=== PATIENT | female | born 1975 ===

== ENCOUNTER 2023-10-29 12:14 | Emergency (ER) | payer OTHER, SELFPAY ==
[2023-10-29] VITALS (9 sets, daily range): BP systolic 121–175; BP diastolic 69–103; PULSE 59–99; RESP 16–18; TEMP 36.4–37; O2SAT 96–100; BMI 33.7
--- NOTE | ~2023-10-29 | XR_ITS ---
EXAMINATION: XR CHEST CLINICAL INFORMATION: Chest pain COMPARISON: Chest radiograph from 03/19/2007 TECHNIQUE: 2 views of the chest were obtained. FINDINGS: Slight elevation right hemidiaphragm. No pneumothorax. Trachea is midline. Cardiac mediastinal silhouette is not enlarged. No large pleural effusion. Slight dextrocurvature of the thoracolumbar spine with mild multilevel degenerative changes. Soft tissues are unremarkable. XR/XR chest 2V IMPRESSION: Slight elevation right hemidiaphragm. Electronically signed by: Lizzie Steele MD 10/29/2023 01:44 PM EDT
--- NOTE | 2023-10-29 12:23 | ECG_ITS ---
Test Reason : CHEST PAIN Blood Pressure : / mmHG Vent. Rate : 077 BPM Atrial Rate : 077 BPM P-R Int : 118 ms QRS Dur : 082 ms QT Int : 440 ms P-R-T Axes : 040 008 016 degrees QTc Int : 497 ms Normal sinus rhythm Nonspecific ST and T wave abnormality Abnormal ECG When compared with ECG of 24-NOV-2011 20:04, No significant change was found Referred By: Generic ED Physician Electronically Signed By:KARLEE MAHER
--- NOTE | 2023-10-29 12:37 | ED_ITS ---
HPI - Chest Pain General Chief Complaint: Chest Pain Stated Complaint: Chest pain, headache 5 days Time Seen by Provider: 10/29/23 13:55 Source: patient Mode of arrival: ambulatory Limitations: no limitations History of Present Illness HPI narrative: This is a pleasant 48 years old the patient presented to the emergency department with a chief complaint of elevated blood pressure, she brought a blood pressure cuff yesterday and blood pressure has been elevated. She also complaining of some chest pain which is not exertional and she is complaining of palpitation and headache. She does not take any medicine she denies any major medical problem complaint: chest pain Onset (ago): day(s) (2) Prior episodes: Yes Onset: during rest Pain location: substernal Severity: mild Relieving factors: nothing Exacerbating factors: nothing Associated symptoms: nausea Risk Factors Coronary artery disease risk factors: smoking history Thoracic aortic dissection risk factors: none Related Data Previous Rx's ?Medication ?Instructions ?Recorded amlodipine 5 mg tablet (Norvasc) 5 mg PO DAILY #30 tabs 10/29/23 Allergies Allergy/AdvReac Type Severity Reaction Status Date / Time doxycycline Allergy Hallucinati Verified 10/29/23 12:42 ons Penicillins Allergy Unknown Verified 10/29/23 12:42 Review of Systems 2 Constitutional: Constitutional: Reports no additional constitutional complaints ENT: Reports system reviewed and no additional complaints, except as documented Cardiovascular: Cardiovascular: Reports chest pain [facility] Past Medical History Attestation statement: The following information was validated with the patient. [facility] Narrative: Denies any major medical Social History Social History Advance Directives: No Advance Directives Information Provided: No Physical Exam 2 Vital Signs: Vital Signs: Last Vital Signs Temp 98.6 F 10/29/23 12:38 Pulse 99 10/29/23 14:54 Resp 16 10/29/23 14:33 BP 135/80 10/29/23 15:08 Pulse Ox 98 10/29/23 14:33 O2 Del Method Room Air 10/29/23 14:33 BMI result Body Mass Index 33.7 Const: General: cooperative and well groomed Nutritional Appearance: a verage body habitus Orientation/consciousness: patient oriented x3 L imitations: no limitations HEENT: Head: Yes normal to inspection General nose exam: Normal external nose present Face and sinus: Yes normal facial exam Mouth: Normal oral and palatal mucosa present Throat: Yes posterior oropharynx normal Neck: Neck: Yes normal visual inspection Chest: Chest palpation & inspection: normal inspection of the chest Resp: Effort & Inspection: normal respiratory effort Auscultation: clear to auscultation bilaterally Cardio: Jugular venous distension: no JVD Rate: regular rate Rhythm: r egular rhythm GI: Inspection: Yes normal to inspection Palpation (GI): not firm, nontender and no guarding Skin: General skin exam: no rashes or lesions noted and elasticity normal L esions: no lesions Neuro: General: patient oriented x3 Course Course Course Narrative: This is a Rapid Medical Examination (RME) performed by Marco Simmons PA-C in triage. Full HPI, ROS, assessment and treatment plan per primary provider in the Main ED. 48 yo female with history of untreated HTN (no PCP since COVID), hx [place] palsy, hx cardiac arrhythmia 12 years ago who presents to the ER for evaluation of intermittent, sharp central and left sided chest pains that occurred all week but worsened today. Mild migraine headaches x5 days. Palpitations at night. BP at home 174/111. Plan: EKG, labs, CXR Reevaluation(s) Reevaluation #1: She is feeling better at this time blood pressure is better she was given amlodipine, symptoms are now resolved. Labs okay. I sensitive troponin negative. Think is reasonable to discharge the patient on amlodipine 5 mg daily. She does not have a PCP right now she made an appointment. Time: 15:45 Medications Administered Discontinued Medications Generic Name Dose Route Start Last Admin Trade Name Estephania PRN Reason Stop Dose Admin Amlodipine Besylate 10 mg 10/29/23 14:01 10/29/23 15:08 Amlodipine Besylate 10 Mg Tablet PO 10/29/23 14:02 10 mg ONCE ONE Administration Protocol Medical Decision Making Medical Decision Making [facility] Narrative: Patient presented with elevated blood pressure in chest pain we will check EKG troponin Differential Diagnosis Differential Diagnoses: The differential diagnosis associated with the presentation includes Hypertension/anxiety/acute coronary syndrome Admission/Observation Consideration of admission/observation: Escalation of care including admission/observation considered Lab Data 10/29/23 13:16 10/29/23 13:16 Labs: Lab Results 10/29/23 Range/Units 13:16 WBC 10.4 (4.8-10.8) X10*3/uL RBC 5.29 (4.20-5.50) X10*6/uL Hgb 15.7 (12.0-16.0) g/dl Hct 44.6 (37.0-47.0) % MCV 84.3 (80.0-98.0) fL MCH 29.7 (27.0-33.0) pg MCHC 35.2 H (31.0-35.0) g/dl RDW 13.1 (11.0-16.0) % Plt Count 247 (160-400) X10*3/uL MPV 10.5 (9.4-12.3) fL Immature Gran % (Auto) 0.3 (0.0-0.4) % Neut % (Auto) 66.8 (45-73) % Lymph % (Auto) 22.9 (20-40) % Routt % (Auto) 6.0 (2-11) % Eos % (Auto) 3.5 (0-4) % Baso % (Auto) 0.5 (0-2) % Lymph # (Auto) 2.4 (1.2-4.9) X10*3/uL Routt # (Auto) 0.6 (0.1-1.2) X10*3/uL Eos # (Auto) 0.4 (0.0-0.4) X10*3/uL Baso # (Auto) 0.1 (0.0-0.2) X10*3/uL Abs Immat Gran (auto) 0.03 (0.00-0.03) X10*3/uL Absolute Neuts (auto) 7.0 (2.0-8.3) x10*3/uL Absolute Nucleated RBC 0.000 (0.0-0.012) X10*3/uL Nucleated RBC % (auto) 0.0 (0.0-0.2) /100WBC Sodium 142 (135-145) mmol/L Potassium 4.1 (3.3-5.1) mmol/L Chloride 107 (96-108) mmol/L Carbon Dioxide 25 (22-29) mmol/L Anion Gap 14 (12-20) BUN 8 L (9-16) mg/dL Creatinine 0.83 (0.5-1.4) mg/dL Estim Creat Clear Calc 115.4 Estimated GFR > 60 Random Glucose 90 (60-115) mg/dL Calcium 9.9 (8.4-10.2) mg/dL Magnesium 2.2 (1.6-2.6) mg/dL Total Bilirubin 0.5 (0.0-1.0) mg/dL Direct Bilirubin 0.1 (0.0-0.5) mg/dL AST 25 (5-31) U/L ALT 30 (0-31) U/L Alkaline Phosphatase 78 (39-117) U/L Troponin I High Sens 13.8 (<3.5-17.0) ng/L B-Natriuretic Peptide 39 (<100) pg/mL Total Protein 8.0 (6.5-8.0) g/dL Albumin 4.4 (3.5-5.0) g/dL Independent Interpretation I performed an independent interpretation of an: EKG Interpretation: Normal sinus rhythm a rate [address]-T changes Discharge Plan Discharge Clinical Impression: Hypertension Qualifiers: Hypertension type: primary hypertension Qualified Code(s): I10 - Essential (primary) hypertension Chest pain Qualifiers: Chest pain type: unspecified Qualified Code(s): R07.9 - Chest pain, unspecified Patient Disposition: Home, Self-Care Instructions: Hypertension (ED) Prescriptions: New amlodipine [Norvasc] 5 mg tablet 5 mg PO DAILY Qty: 30 0RF Referrals: Leydi Yung MD [Primary Care Provider] - 3 days Jomar Calderon MD [Physician] - 3 days Stand Alone Forms: Work/School Release Print Language: Somali
[2023-10-29 13:21] LABS: MANUAL DIFF FLAG NO
[2023-10-29 13:22] LABS: Basophils Absolute Auto 0.1 X10*3/uL (0.0-0.2); Basophils Percent Auto 0.5 % (0-2); Eosinophils Absolute Auto 0.4 X10*3/uL (0.0-0.4); Eosinophils Percent Auto 3.5 % (0-4); Hematocrit 44.6 % (37.0-47.0); Hemoglobin 15.7 g/dl (12.0-16.0); Imm Gran Abs Auto 0.03 X10*3/uL (0.00-0.03); Imm Gran Pct Auto 0.3 % (0.0-0.4); Lymphocytes Absolute Auto 2.4 X10*3/uL (1.2-4.9); Lymphocytes Percent Auto 22.9 % (20-40); Mean Corpuscular HGB Conc 35.2 g/dl (31.0-35.0); Mean Corpuscular Hemoglobin 29.7 pg (27.0-33.0); Mean Corpuscular Volume 84.3 fL (80.0-98.0); Mean Platelet Volume 10.5 fL (9.4-12.3); Monocytes Absolute Auto 0.6 X10*3/uL (0.1-1.2); Neutrophils Percent Auto 66.8 % (45-73); Platelet Count 247 X10*3/uL (160-400); Red Blood Count 5.29 X10*6/uL (4.20-5.50); Red Cell Distribution Width 13.1 % (11.0-16.0); White Blood Count 10.4 X10*3/uL (4.8-10.8)
[2023-10-29 13:56] LABS: Alanine Aminotransferase 30 U/L (0-31); Albumin Level 4.4 g/dL (3.5-5.0); Alkaline Phosphatase 78 U/L (39-117); Anion Gap 14 (12-20); Aspartate Amino Transferase 25 U/L (5-31); Bilirubin Direct 0.1 mg/dL (0.0-0.5); Bilirubin Total 0.5 mg/dL (0.0-1.0); Blood Urea Nitrogen 8 mg/dL (9-16); Calcium 9.9 mg/dL (8.4-10.2); Carbon Dioxide 25 mmol/L (22-29); Chloride 107 mmol/L (96-108); Creatinine Clr Calc Pharmacy 115.4; Estimated Glomerular Filt Rate > 60; Glucose Random 90 mg/dL (60-115); Magnesium 2.2 mg/dL (1.6-2.6); Potassium 4.1 mmol/L (3.3-5.1); Sodium 142 mmol/L (135-145)
[2023-10-29 14:03] LABS: Troponin-I High Sensitivity 13.8 ng/L (<3.5-17.0)
[2023-10-29 14:07] LABS: B Type Natriuretic Peptide 39 pg/mL (<100)
[2023-10-29] MEDS: amLODIPine Besylate 10 MG TABLET PO (15:08)
[2023-10-29 16:05] LABS: Appearance Urine Clear; Color Urine Yellow; Glucose Urine UA Negative (Negative); Leukocyte Esterase Urine Negative (Negative); Nitrite Urine Negative (Negative); PH 5.5 (5.0-9.0); Urine Blood Negative (Negative); Urine Ketones Trace mg/dL (Negative); Urine Protein Negative (Neg-Trace)
[2023-10-29 16:15] LABS: Amphetamine Screen Urine Not Detected (Not Detect); Barbiturates, Urine Not Detected (Not Detect); Benzodiazepines Screen Urine Not Detected (Not Detect); Buprenorphine Scr Not Detected (Not Detect); Cannabinoid Screen Urine Not Detected (Not Detect); Cocaine Screen Urine Not Detected (Not Detect); Fentanyl, urine Not Detected (Not Detect); Methadone Screen, Urine Not Detected (Not Detect); Opiate Screen Urine Not Detected (Not Detect); Oxycodone Screen Urine Not Detected (Not Detect); Phencyclidine Screen Urine Not Detected (Not Detect)
== END 2023-10-29 16:08 | disposition home or self-care (01) ==
PROVIDERS: Physician Assistant; Emergency Provider Emergency Medicine; PCP Internal Medicine
DX: R07.89 Other chest pain (principal); R51.9 Headache, unspecified; R11.2 Nausea with vomiting, unspecified; I10 Essential (primary) hypertension; R00.2 Palpitations; R06.02 Shortness of breath; Z51.81 Encounter for therapeutic drug level monitoring; Z79.899 Other long term (current) drug therapy
CPT/HCPCS: 36415; 71046; 80048; 80076; 80307; 81003; 83735; 83880; 84484; 85025; 93005; 99283; 99285

== ENCOUNTER 2023-11-07 07:43 | Outpatient (AMB) | payer OTHER, SELFPAY ==
[2023-11-07 07:49] VITALS: BP 110/78; PULSE 88; O2SAT 98; BMI 33.9
--- NOTE | 2023-11-07 07:49 | A.OFFPC_ITS ---
Vital Signs 11/07/23 07:49 Height 5 ft 11 in Weight 243 lb BMI 33.9 BP 110/78 Blood Pressure Location Rt brachial Position Sitting Pulse 88 Pulse Source Pulse Oximeter Pulse Oximetry (%) 98 Oxygen Delivery Method Room Air Intake Visit Reasons: [facility] [place] elevated Intake Note: Pt is here today as a New Patient for ER f/u elevated b/p Allergies doxycycline Allergy (Verified 11/07/23 08:14) Hallucinations Penicillins Allergy (Verified 11/07/23 08:14) Unknown adhesive tape Adverse Reaction (Verified 11/07/23 08:14) rash COVID19 Adverse Reaction (Uncoded 11/07/23 08:14) Anaphylaxis Medication List - Last Reconciled 11/07/23 by Leydi Yung MD amlodipine (Norvasc) 5 mg PO DAILY Tobacco use date assessed: 11/07/23 Dental Screening Dental Screen Date: 11/07/23 Did you have a dental visit in the last 12 months?: No Did you have a dental problem in the last 6 months where you did not have access to dental care?: No Was dental information given to patient?: Patient has dentist HPI [facility] [place] elevated HPI Details 48 yo female with history of untreated H TN , reasons COVID, hx [place] palsy, hx cardiac arrhythmia 12 years ago who is here for follow-up after recent ER visit, where she went for evaluation of intermittent, sharp central and left sided chest pains that occurred all week and progressively getting worse. This was accompanied by mild headache, and occasional palpitations. Her blood pressure at home was 174/111. She was given amlodipine, resolution of symptoms. CBC electrolytes renal function and troponin all came within normal limits. Patient has been checking her blood pressure however and it has been running at home averaging the 150s over 90's Still continues to smoke cigarettes, usually smokes half a pack a day, but has now starting to cut back COUNTS INCLUDE 234 BEDS AT THE [facility] Medical History Not ready to quit smoking Rosacea PTSD (post-traumatic stress disorder) Essential hypertension Surgical History No pertinent past surgical history Family History Father Substance use disorder Mental health disorder Essential hypertension Alcoholism Prostate cancer Paternal Uncle No problems noted. Sister Mental health disorder Cardiac arrhythmia History of pulmonary embolus (PE) PTSD (post-traumatic stress disorder) OCD (obsessive compulsive disorder) Mother Cardiac arrhythmia Diabetes mellitus Congestive heart failure (CHF) Essential hypertension Social History Housing: House Patient Tobacco Use Status: Current everyday Tobacco user Tobacco use type: Cigarette e-Cigarette/Vaping Use: Never Used service: No Current occupational status: employed Cognitive needs: No Hearing needs: No Vision needs: Yes Review of Systems Const Denies body aches, Denies fatigue, Denies fever(s), Denies headache(s) and Denies weakness Eyes Denies change in vision ENT Denies dizziness, Denies headache(s) and Denies nasal congestion Card Denies chest pain, Denies lightheadedness and Denies dyspnea Resp Denies cough and Denies dyspnea GI Denies abdominal pain, Denies change in bowel habits and Denies heartburn Denies hematuria, Denies urinary frequency and Denies dysuria Musc Reports no additional complaints Neuro Denies dizziness, Denies headache(s) and Denies weakness Psych Reports no additional complaints Endo Denies fatigue, Denies polydipsia and Denies polyuria Michel/Lymph Denies easy bruising Aller/Immun Denies seasonal rhinorrhea Physical exam (Primary Care) Vital Signs: Last Vital Signs Pulse 88 11/07/23 07:49 BP 110/78 11/07/23 07:49 Pulse Ox 98 11/07/23 07:49 Oxygen Delivery Method Room Air 11/07/23 07:49 BMI result Body Mass Index 33.9 Tobacco/Smoking Status: Tobacco use Status Tobacco use date assessed 11/07/23 11/07/23 07:53 Patient Tobacco Use Status Current everyday Tobacco 11/07/23 07:53 Tobacco use type Cigarette 11/07/23 07:53 e-Cigarette/Vaping Use Never Used 11/07/23 07:53 Const General: comfortable, no acute distress and alert Orientation/consciousness: patient oriented x3 HENMT Ears: external ears normal General nose exam: Normal external nose present Mouth: Normal oral and palatal mucosa present, oropharynx normal and moist mucous membranes Eyes General: appearance normal, both eyes and all related structures Conjunctivae: conjunctivae normal Sclerae: sclerae normal Pupils: Equal, round and reactive pupils present EOM: EOMs intact bilaterally Neck Neck: Yes full ROM, Yes no lymphadenopathy and Yes supple Resp Effort & Inspection: normal respiratory effort and able to speak in complete sentences Auscultation: clear to auscultation bilaterally Cardio Rate: regular rate Rhythm: regular rhythm Heart sounds: S1 normal heart sound present and S2 normal heart sound present Bruits: no carotid bruits GI Palpation (GI): Soft to palpation, nontender and no masses Auscultation: normal bowel sounds Back/Spine/Pelvis Back: No back tenderness Neuro General: patient oriented x3, gait normal, tone normal, moves all extremities, Normal light touch and pain sensation and no focal motor deficits Cranial nerves: Yes CN's II-XII intact bilaterally and Yes Equal, round and reactive pupils present Cognition (Neuro): normal cognition Extrem General: Yes full ROM, Yes no joint enlargement, Yes no clubbing, cyanosis or edema and Yes no calf tenderness Psych Appearance: grossly normal and well kempt Mental Status: mental status grossly normal Speech and movement: Normal speech and movement present Affect: normal affect Attitude: cooperative Thought process: Normal thought process present Thought content: Normal thought content present Assessment and Plan Assessment & Plan (1) Essential hypertension: Code(s): I10 - Essential (primary) hypertension Plan: Blood pressure disease within normal limits but patient has been checking it at home and it has been averaging 150/90. Will increase amlodipine to 7.5 mg once a day, advised to go on a low-salt diet, encouraged strongly to quit smoking, patient is cutting back. Recommended to see a parts representative for guidance with regards to her diet, needs to be on a low-salt low-cholesterol diet, patient states that she will call and schedule appointment will have her check her (2) Intermittent palpitations: Code(s): R00.2 - Palpitations Plan: Already has an appointment to see Cardiology next week (3) Not ready to quit smoking: Code(s): Z72.0 - Tobacco use Plan: Patient strongly advised to stop smoking, as smoking damages blood vessels, degenerative of joints and spine, damage to lungs and heart., predisposes to developing certain cancers like lung, breast, bladder, colon. Recommended to try decreasing cigarette use by 1-2 cigarettes a day. Advised to monitor what triggers are for smoking so that this can be discussed on the next office visit. We can discuss different options to quit smoking when ready. (4) PTSD (post-traumatic stress disorder): Code(s): F43.10 - Post-traumatic stress disorder, unspecified Plan: Controls it through behavioral modifications. Currently not on any medication. Orders: Orders TSH reflex Free T4 Today I10 - Essential (primary) hypertension, R00.2 - Palpitations Lipid Panel Today I10 - Essential (primary) hypertension, R00.2 - Palpitations Vitamin D 25-OH Total Today I10 - Essential (primary) hypertension, R00.2 - Palpitations Medications: Changed From amlodipine (Norvasc) 5 mg PO DAILY 30 tabs 0RF To amlodipine (Norvasc) 7.5 mg (1.5 x 5 mg) PO DAILY 30 days 45 tabs 0RF Coding Level of Care Code New Pt Level 4 (32255) Diagnoses Essential hypertension I10 Intermittent palpitations R00.2 Not ready to quit smoking Z72.0 PTSD (post-traumatic stress disorder) F43.10
== END 2023-11-07 12:48 | disposition home or self-care (01) ==
PROVIDERS: PCP Internal Medicine; Visit Provider Internal Medicine
DX: I10 Essential (primary) hypertension (principal); R00.2 Palpitations; Z72.0 Tobacco use; F43.10 Post-traumatic stress disorder, unspecified

== ENCOUNTER → 2023-11-07 07:43 | Outpatient (BNVA) | payer OTHER, SELFPAY | PROVIDERS: PCP Internal Medicine; Visit Provider Internal Medicine | DX: I10 Essential (primary) hypertension (principal) ==

== ENCOUNTER 2023-11-07 08:58 | Outpatient (REF) | payer OTHER, SELFPAY ==
[2023-11-07 14:06] LABS: Cholesterol 172 mg/dL (<200); HDL Cholesterol 49 mg/dL (>40); LDL Cholesterol Calculated 104 mg/dL (<100); TSH reflex Free T4 1.66 uIU/mL (0.32-4.0); Triglycerides 95 mg/dL (<150); Vitamin D 25-OH Total 36.6 ng/mL (>30)
== END 2023-11-07 08:59 | disposition home or self-care (01) ==
LOC: HO.HMGCLDS 08:58
PROVIDERS: PCP Internal Medicine; Visit Provider Internal Medicine
DX: I10 Essential (primary) hypertension (principal); R00.2 Palpitations
CPT/HCPCS: 36415; 80061; 82306; 84443

== ENCOUNTER 2023-11-14 13:14 | Outpatient (AMB) | payer OTHER, SELFPAY ==
[2023-11-14 13:49] VITALS: BP 132/68; PULSE 79; BMI 33.8
--- NOTE | 2023-11-14 13:49 | MHC.OFFVIS ---
Vital Signs 11/14/23 13:49 Height 5 ft 11 in Weight 242 lb 8.136 oz BMI 33.8 BP 132/68 Blood Pressure Location Lt brachial Position Sitting Pulse 79 Pulse Source Monitor Intake Visit Reasons: s/p ED htn / meds NS Allergies bacitracin [From Triple Antibiotic] Allergy (Verified 11/14/23 14:44) Rash doxycycline Allergy (Verified 11/14/23 14:44) Hallucinations neomycin [From Triple Antibiotic] Allergy (Verified 11/14/23 14:44) Rash Penicillins Allergy (Verified 11/14/23 14:44) Unknown polymyxin B [From Triple Antibiotic] Allergy (Verified 11/14/23 14:44) Rash adhesive tape Adverse Reaction (Verified 11/14/23 14:44) rash COVID19 Adverse Reaction (Uncoded 11/14/23 14:44) Anaphylaxis Medication List - Last Reconciled 11/14/23 by Bridget Verma NP amlodipine (Norvasc) 7.5 mg (1.5 x 5 mg) PO DAILY 30 days HPI Comments Details: 48-year-old female presents today for a new patient visit. She went to the emergency department on 10/29/2023 due to having a headache for 5 days and noting her blood pressure was elevated at 179/114. She describes a squeezing chest pain and when she gets palpitations it is a flutter accompanied by a sharp pain. She has a history of PTSD, Rosacea, smoking, and hypertension. Since the emergency room visit she has cut back on smoking and caffiene. She does not drink alcohol. Her mother has heart failure, atrial fibrillation,. and hypertension. Her sister has an arrhythmias and hypertension. The last week her systolic readings have been 110-130s. [facility] Medical History Palpitations Not ready to quit smoking Rosacea PTSD (post-traumatic stress disorder) Essential hypertension Surgical History No pertinent past surgical history Family History Father Substance use disorder Mental health disorder Essential hypertension Alcoholism Prostate cancer Paternal Uncle No problems noted. Sister Mental health disorder Cardiac arrhythmia History of pulmonary embolus (PE) PTSD (post-traumatic stress disorder) OCD (obsessive compulsive disorder) Atrial fibrillation Mother Cardiac arrhythmia Diabetes mellitus Congestive heart failure (CHF) Essential hypertension Atrial fibrillation Social History Housing: House Patient Tobacco Use Status: Current everyday Tobacco user Tobacco use type: Cigarette e-Cigarette/Vaping Use: Never Used service: No Current occupational status: employed Cognitive needs: No Hearing needs: No Vision needs: Yes Review of Systems Const Denies weakness ENT Reports dizziness Card Reports chest pain, Denies chest pain with activity, Denies syncope, Denies rapid heart rate, Denies pedal edema, Denies edema, Denies leg edema, Denies lightheadedness, Reports palpitations, Denies dyspnea, Denies dyspnea on exertion and Denies orthopnea Resp Denies cough, Denies dyspnea and Denies dyspnea on exertion GI Denies hematochezia and Denies change in stool character Musc Denies abnormal gait, Denies muscle cramps, Denies muscle weakness, Denies numbness, Denies radiating pain into limb and Denies tingling Neuro Denies abnormal gait, Reports dizziness, Denies syncope, Denies numbness, Denies tingling and Denies weakness Endo Reports palpitations Physical Exam Vital Signs: Last Vital Signs Pulse 79 11/14/23 13:49 BP 132/68 11/14/23 13:49 BMI result Body Mass Index 33.8 Const General: healthy appearing and no acute distress Orientation/consciousness: patient oriented x3 HEENT Head: Yes normal to inspection Eyes General: appearance normal, both eyes and all related structures Neck Neck: Yes normal visual inspection Chest Chest palpation & inspection: normal inspection of the chest Resp Effort & Inspection: normal respiratory effort Auscultation: clear to auscultation bilaterally Cardio Jugular venous distension: no JVD Palpation: normal PMI Rate: regular rate Rhythm: regular rhythm Heart sounds: S1 normal heart sound present, S2 normal heart sound present, no click, no gallops, no murmurs and no rubs GI Inspection: Yes normal to inspection Palpation (GI): Soft to palpation Skin General skin exam: no rashes or lesions noted Neuro General: patient oriented x3 Extrem General: Yes normal to inspection Psych Appearance: grossly normal Office Procedures EKG Details: EKG today. Normal sinus rhythm. Nonspecific ST abnormality. Prolonged QT. ventricular rate 79 beats per minute. CO interval 1 38 milliseconds. QRS duration 88 milliseconds. QTC 495 milliseconds. [id number], Complete Assessment & Plan Assessment & Plan (1) Essential hypertension: Code(s): I10 - Essential (primary) hypertension Category: Medical (2) Not ready to quit smoking: Code(s): Z72.0 - Tobacco use Category: Social Hx Plan: Trying to quit. Cutting back slowly. (3) Chest pain: Code(s): R07.9 - Chest pain, unspecified Category: Medical Qualifiers: Chest pain type: unspecified Qualified Code(s): R07.9 - Chest pain, unspecified (4) Palpitations: Code(s): R00.2 - Palpitations Category: Medical (5) PTSD (post-traumatic stress disorder): Code(s): F43.10 - Post-traumatic stress disorder, unspecified Category: Medical Plan Will do holter montior to assess for arrhythmias Has family history of atrial fibrillation. Will check echocardiogram for structual changes from HTN. She reports she had high readings for quite a few years and it wasnt addressed. Will do exercise stress test to assess blood pressure with exercise and ischemic changes related to her chest pains. ED care if needed. Stress mitigation techniques reviewed. 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 Complete smoking cessation discussed. Avoid stimulants. Log blood pressures and bring to next visit. Orders: Orders ECG 3 day holter monitor 11/14/23 R00.2 - Palpitations CA stress test 11/14/23 R07.9 - Chest pain, unspecified CA echo transthoracic complete 11/14/23 I10 - Essential (primary) hypertension Coding Level of Care Code New Pt Level 4 (99167) Diagnoses Essential hypertension I10 Not ready to quit smoking Z72.0 Chest pain R07.9 Chest pain type: unspecified Palpitations R00.2 PTSD (post-traumatic stress disorder) F43.10 CPT Codes EKG - CPT: [id number], Complete ([id number])
== END 2023-11-14 15:06 | disposition home or self-care (01) ==
PROVIDERS: PCP Internal Medicine; Visit Provider Nurse Practitioner
DX: R93.41 Abnormal radiologic findings on diagnostic imaging of renal pelvis, ureter, or bladder (principal)
CPT/HCPCS: 93010; 99204

== ENCOUNTER → 2023-11-14 13:14 | Outpatient (BNVA) | payer OTHER, SELFPAY | PROVIDERS: PCP Internal Medicine; Visit Provider Nurse Practitioner | DX: I10 Essential (primary) hypertension (principal); R07.9 Chest pain, unspecified; R00.2 Palpitations; F43.10 Post-traumatic stress disorder, unspecified; Z72.0 Tobacco use | CPT/HCPCS: 93005 ==

== ENCOUNTER → 2023-12-12 08:32 | Outpatient (REF) | payer OTHER, SELFPAY ==
--- NOTE | 2023-12-12 08:36 | CA_ITS ---
Acquisition Time: 2023-12-12 10:23:17 Total Exercise Time: 00:06:27 Test Indications: CP Medications: AMLODIPINE Protocol: YOAN Max HR: 150 BPM 86% of Pred: 174 BPM Max BP: 148/074 mmHG Max Work Load: 7.6 METS Exercise stress test with exercise 6 min 27 sec of Yoan protocol, achieving 86% MPHR, with moderate shortness of breath, no chest discomfort, with isolated PACs and PVCs, then in stage 3 there were 3 ventricular cuplets, with normotensive response to exercise, without EKG changes meeting criteria for ischemia. In recovery her breathing quickly improved. Test reviewed with Dr Mccloud Referred By: Bridget Verma Overread By: RICARDO FISHER
--- NOTE | 2023-12-12 08:36 | CA_ITS ---
Transthoracic Echocardiogram Patient (Last, First, Middle): Marisela Gamboa L Gender: Female Date of : 1975 Age: 48 Procedure Date: 12/12/2023 Procedure Type: Transthoracic Echocardiogram Location: OP Height: 180.34 cm Weight: 106.6 kg BSA: 2.26 m2 Heart Rate: bpm BP: 140 / 80 mmHg Ultrasonographer: TO Referring MD: Bridget Verma NP Symptoms: I10 - Essential (primary) hypertension Study Quality: Adequate ECG Rhythm: Sinus Conclusions: - The left ventricular systolic function is low normal. The calculated ejection fraction is 53% by biplane method. - Possible basal inferior hypokinesis, but more likely artifactual. - No obvious valvular pathology seen on this study. Findings Left Ventricle Normal left ventricular cavity size. There is normal left ventricular wall thickness. The left ventricular systolic function is low normal. The calculated ejection fraction is 53% by biplane method. Diastolic function is normal for age. Possible basal inferior hypokinesis, but more likely artifactual. Right Ventricle Mildly increased right ventricular cavity size. There is normal right ventricular systolic function. Atria Both atria are normal in size. Aortic Valve There is a normal trileaflet aortic valve. There is no aortic valve stenosis. There is no aortic valve regurgitation. Mitral Valve The mitral valve appears normal. There is trace mitral valve regurgitation. There is no mitral valve stenosis. Pulmonic Valve There is trace pulmonic valve regurgitation. Tricuspid Valve There is trace tricuspid valve regurgitation. There is no evidence of pulmonary hypertension. Great Vessels The asc aorta is normal in size. Venous The inferior vena cava is normal in size and collapses less than 50% with inspiration. Pericardium/Pleural There is no evidence of pericardial effusion. Prior Study Comparison No prior study available for comparison. Recommendations, Care & Conclusions No obvious valvular pathology seen on this study. Measurements 2D Linear Measurements IVSd: 0.98 0.6-0.9/0.6-1.0 cm LVIDd: 5.44 3.9-5.3/4.2-5.9 cm LVIDd Index: 2.41 2.4-3.2/2.2-3.1 cm/m2 LVIDs: 3.74 2.0-3.6 cm LVPWd: 0.90 0.7-1.1 cm LA Diam: 3.00 2.7-3.8/3.0-4.0 cm LAIDs Index: 1.33 1.5-2.3 cm/m2 LV Mass: 239.48 67-162/88-224 g LV Mass Index: 105.97 43-95/49-115 g/m2 LVOT Diam: 2.30 3.0+(-)1.3 cm 2D Systolic Function EF 4C: 50.50 >55% EF 2C: 56.20 >55% EF BiP: 52.90 >55% Mitral Valve MV Pk E: 0.84 MV PK A: 0.65 MV Decel Time: 243.00 E/A: 1.30 E'Lateral: 8.16 E'Medial: 6.64 E/E' Med: 12.70 E/E' Lat: 10.30 PHT: 71.00 MVA PHT: 3.10 Decel Clarke: 3.47 Aortic Valve AoV Pk Lucien: 1.22 AoV Mn Lucien: 0.85 AoV VTI: 0.25 AoV Pk Grad: 6.00 Aov Mn Grad: 3.00 BABITA Cont.VTI: 2.86 LVOT LVOT Pk Lucien: 0.95 LVOT Mn Lucien: 0.64 LVOT VTI: 0.17 LVOT Pk Grad: 4.00 LVOT Mn Grad: 2.00 LVOT Diam: 2.30 LVOT Area: 4.15 Diastolic Function MV Pk E: 0.84 MV Pk A: 0.65 E/A: 1.30 E'Medial: 6.64 E/E' Med: 12.70 E' Laterial: 8.16 E/E' Lat: 10.30 Right Ventricle TAPSE (mm): 21.70 TVS' Lucien: 11.30 Tricuspid Valve RA Press: 3.00 Great Vessels Aorta Sinus of Valsalva: 3.55 2.0-3.5 cm Ao Asc: 3.60 2.1-3.4 cm Updated in Other Vendor System with Status of Final Peter Mccloud MD electronically signed on 12/13/2023 6:51:09 PM with status of Final
--- NOTE | 2023-12-12 08:36 | HM_ITS ---
Conclusion: 1. Patient was monitored for total period of 3 days 2. Baseline was normal sinus rhythm with average heart of 71 beats per minute 3. No significant pauses noted 4. Frequent PVCs noted with total burden of 1.2% with 2 3 beat salvos of nonsustained VT 5. Occasional PACs noted 6. No patient reported events MTDD
== END ==
LOC: HO.CARD 08:32
PROVIDERS: PCP Internal Medicine; Visit Provider Nurse Practitioner
DX: R07.9 Chest pain, unspecified (principal); R00.2 Palpitations; I10 Essential (primary) hypertension
CPT/HCPCS: 93017; 93242; 93306

== ENCOUNTER → 2023-12-12 08:36 | Outpatient (BNV) | payer OTHER, SELFPAY | PROVIDERS: PCP Internal Medicine; Visit Provider Nurse Practitioner Family | DX: I49.3 Ventricular premature depolarization (principal); I49.1 Atrial premature depolarization | CPT/HCPCS: 93016; 93018; 93244; 93306 ==

== ENCOUNTER 2024-01-06 08:17 | Outpatient (REF) | payer OTHER, SELFPAY ==
[2024-01-06 09:33] LABS: Anion Gap 12 (12-20); Blood Urea Nitrogen 9 mg/dL (9-16); Calcium 9.3 mg/dL (8.4-10.2); Carbon Dioxide 26 mmol/L (22-29); Chloride 105 mmol/L (96-108); Estimated Glomerular Filt Rate > 60; Glucose Random 104 mg/dL (60-115); Potassium 3.9 mmol/L (3.3-5.1); Sodium 139 mmol/L (135-145)
== END 2024-01-06 08:18 | disposition home or self-care (01) ==
LOC: HO.LAB 08:17
PROVIDERS: PCP Internal Medicine; Visit Provider Internal Medicine
DX: Z00.00 Encounter for general adult medical examination without abnormal findings (principal); R07.9 Chest pain, unspecified
CPT/HCPCS: 36415; 80048; 96127

== ENCOUNTER 2024-01-06 09:39 | Outpatient (AMB) | payer OTHER, SELFPAY ==
[2024-01-06 10:53] VITALS: BP 100/70; PULSE 64; O2SAT 97; BMI 33.9
--- NOTE | 2024-01-06 10:53 | MHC.PC.OV ---
Vital Signs 01/06/24 10:53 Height 5 ft 11 in Weight 243 lb BMI 33.9 BP 100/70 Blood Pressure Location Rt brachial Position Sitting Pulse 64 Pulse Source Pulse Oximeter Pulse Oximetry (%) 97 Oxygen Delivery Method Room Air Intake Visit Reasons: PE per Dr. Miguel 11/06 Intake Note: Pt is here today for her PE: Allergies bacitracin [From Triple Antibiotic] Allergy (Verified 01/06/24 11:26) Rash doxycycline Allergy (Verified 01/06/24 11:26) Hallucinations neomycin [From Triple Antibiotic] Allergy (Verified 01/06/24 11:26) Rash Penicillins Allergy (Verified 01/06/24 11:26) Unknown polymyxin B [From Triple Antibiotic] Allergy (Verified 01/06/24 11:) Rash adhesive tape Adverse Reaction (Verified 01/06/24 11:) rash COVID19 Adverse Reaction (Uncoded 01/06/24 11:) Anaphylaxis Medication List - Last Reconciled 01/06/24 by Leydi Yung MD amlodipine (Norvasc) 7.5 mg (1.5 x 5 mg) PO DAILY 90 days Tobacco use date assessed: 01/06/24 Dental Screening Dental Screen Date: 01/06/24 Did you have a dental visit in the last 12 months?: No Did you have a dental problem in the last 6 months where you did not have access to dental care?: No Was dental information given to patient?: Patient has dentist HPI PE per Dr. Miguel 11/06 HPI Details The patient is a 48-year-old female presenting today for her physical examination. She is expressing concerns about recently diagnosed mitral valve dysfunction, identified during a recent echocardiogram ordered by her credit collections clerk after she weas seen at the ER c/o chest pain . The patient is scheduled for a CT cardiac coronary angiogram next week at [facility] . She had a stress test, achieved 86% completion without EKG changes; isolated irregular heartbeats were noted, yet no chest discomfort occurred. Echocardiogram revealed trace regurgitation in tricuspid and pulmonic valves with slightly increased right ventricular cavity size, while the heart's contractility remains normal. Left ventricular systolic function is termed low normal. Patient denies dizziness despite low blood pressure. Anxiety about cardiovascular health is noted. She is currently on Amlodipine with blood pressure within normal limits . has been advised reduction in tobacco consumption, - Annual mammogram recommended and ordered. - Colonoscopy referral given, pending scheduling with gastrointestinal specialists. - Pap smear overdue, referral to OBGYN provided for cervical cancer screening. - Blood pressure and cholesterol remain within normal limits. - Vaccinations: Allergies to COVID vaccination noted; last tetanus shot in 2020. - Diet and exercise discussion for weight management and cardiovascular health. [facility] Medical History Palpitations Not ready to quit smoking Rosacea PTSD (post-traumatic stress disorder) Essential hypertension Surgical History No pertinent past surgical history Family History (Reviewed 01/06/24 @ 11: by Leydi Yung MD) Father Substance use disorder Mental health disorder Essential hypertension Alcoholism Prostate cancer Paternal Uncle No problems noted. Sister Mental health disorder Cardiac arrhythmia History of pulmonary embolus (PE) PTSD (post-traumatic stress disorder) OCD (obsessive compulsive disorder) Atrial fibrillation Mother Cardiac arrhythmia Diabetes mellitus Congestive heart failure (CHF) Essential hypertension Atrial fibrillation Social History Housing: House Patient Tobacco Use Status: Current everyday Tobacco user Tobacco use type: Cigarette (light cigarettes 2 packs per week) e-Cigarette/Vaping Use: Never Used service: No Current occupational status: employed Cognitive needs: No Hearing needs: No Vision needs: Yes Questionnaire PHQ-9 Over the last 2 weeks, how often have you been bothered by any of the following problems? 1. Little interest or pleasure in doing things: several days 2. Feeling down, depressed, or hopeless: not at all 3. Trouble falling or staying asleep, or sleeping too much: not at all 4. Feeling tired or having little energy: several days 5. Poor appetite or overeating: not at all 6. Feeling bad about yourself - or that you are a failure or have let yourself or your family down: not at all 7. Trouble concentrating on things, such as reading the newspaper or watching television: several days 8. Moving or speaking so slowly that other people could have noticed. Or the opposite - being so fidgety or restless that you have been moving around a lot more than usual: not at all 9. Thoughts that you would be better off or of hurting yourself in some way: not at all Total score: 3 Depression Screening Interpretation: Negative Depression Screening Done: Yes 19707 - PHQ-9 Billing: Yes Source: Developed by Drs. Neno Mcmillan, Rachel Fuentes, Chuy Aguilar and colleagues, with an educational narciso from [employer] (formerly known as [employer]). Thrive Questionnaire Date Thrive assessed: 01/06/24 I am a: Patient What is your living situation today?: I have a steady place to live Within the past 12 months, did the food you bought not last and you didn't have the money to get more?: I choose not to answer this question Within the past 12 months, did you worry whether your food would run out before you got money to buy more?: I choose not to answer this question Do you have trouble paying for medicines?: I choose not to answer this question Do you have trouble getting transportation to medical appointments?: No Do you have trouble paying your heating and electricity bill?: I choose not to answer this question Do you have trouble taking care of your child, family member or friend?: Yes Do you have trouble with day-to-day activities such as bathing, preparing meals, shopping, managing finances, etc.?: No Are you currently unemployed and looking for a job?: No Are you interested in more education?: No Please select the resources that you would like help with: None Currently or been in a relationship where the following occur: I choose not to answer THRIVE Score: 0 AUDIT C Alcohol Use Questionnaire (AUDIT-C) 1. How often do you have a drink containing alcohol?: Never 3. How often do you have six or more drinks on one occasion?: Never Total Score: 0 STEPHANIE-7 AMB Questionnaire STEPHANIE-7 Date STEPHANIE - 7 assessed: 01/06/24 Feeling nervous, anxious, or on edge: 1 = Several days Not being able to stop or control worryin = Several days Worrying too much about different things: 2 = More than half the days Trouble relaxin = Not at all Being so restless that it is hard to sit still: 0 = Not at all Becoming easily annoyed or irritable: 1 = Several days Feeling afraid as if something awful might happen: 0 = Not at all Total STEPHANIE-7 score (0-4 normal; 5-9 mild; 10-14 moderate; 15-21 severe): 5 Source: Developed by Drs. Neno Mcmillan, Rachel Fuentes, Chuy Aguilar and colleagues, with an educational narciso from [employer] (formerly known as [employer]). STEPHANIE-7 Assessment Billing STEPHANIE-7 Assessment Tool: STEPHANIE-7 Assessment 71706 Review of Systems Const Denies weakness Eyes Denies change in vision ENT Reports no additional complaints Card Denies chest pain with activity, Denies syncope, Denies rapid heart rate, Denies edema, Denies lightheadedness, Reports palpitations, Denies dyspnea, Denies dyspnea on exertion and Denies orthopnea Resp Denies cough, Denies dyspnea and Denies dyspnea on exertion GI Denies hematochezia and Denies change in stool character Reports no additional complaints and Denies nipple discharge Musc Denies abnormal gait, Denies muscle cramps, Denies muscle weakness, Denies numbness, Denies radiating pain into limb and Denies tingling Skin/Breast Denies breast pain, Denies breast mass, Denies lesions, Denies nipple discharge and Denies rash Neuro Denies abnormal gait, Denies syncope, Denies numbness, Denies tingling and Denies weakness Psych Reports as per HPI Endo Reports palpitations Michel/Lymph Reports no additional complaints Aller/Immun Reports no additional complaints Physical exam (Primary Care) Vital Signs: Last Vital Signs Pulse 64 01/06/24 10:53 BP 100/70 01/06/24 10:53 Pulse Ox 97 01/06/24 10:53 Oxygen Delivery Method Room Air 01/06/24 10:53 BMI result Body Mass Index 33.9 Tobacco/Smoking Status: Tobacco use Status Tobacco use date assessed 01/06/24 01/06/24 11:01 Patient Tobacco Use Status Current everyday Tobacco 01/06/24 10:54 Tobacco use type Cigarette (light cigarettes 01/06/24 11:36 2 packs per week) e-Cigarette/Vaping Use Never Used 01/06/24 10:54 PHQ-9: PHQ-9 Score PHQ-9: Total score 4 01/06/24 11:29 Depression Screening Interpretation: Negative Thrive Assessment: Date of Thrive Assessment Date Thrive assessed 01/06/24 01/06/24 11:01 Currently or been in a relationship where the following occur: I choose not to answer Const General: comfortable, no acute distress and alert Orientation/consciousness: patient oriented x3 HENMT Ears: external ears normal General nose exam: Normal external nose present Mouth: Normal oral and palatal mucosa present, oropharynx normal and moist mucous membranes Eyes General: appearance normal, both eyes and all related structures Conjunctivae: conjunctivae normal Sclerae: sclerae normal Pupils: Equal, round and reactive pupils present EOM: EOMs intact bilaterally Neck Neck: Yes full ROM, Yes no lymphadenopathy and Yes supple Resp Effort & Inspection: normal respiratory effort and able to speak in complete sentences Auscultation: clear to auscultation bilaterally Cardio Rate: regular rate Rhythm: regular rhythm Heart sounds: S1 normal heart sound present and S2 normal heart sound present Bruits: no carotid bruits GI Palpation (GI): Soft to palpation, nontender and no masses Auscultation: normal bowel sounds Back/Spine/Pelvis Back: No back tenderness Neuro General: patient oriented x3, gait normal, tone normal, moves all extremities, Normal light touch and pain sensation and no focal motor deficits Cranial nerves: Yes CN's II-XII intact bilaterally and Yes Equal, round and reactive pupils present Cognition (Neuro): normal cognition Extrem General: Yes full ROM, Yes no joint enlargement, Yes no clubbing, cyanosis or edema and Yes no calf tenderness Psych Appearance: grossly normal and well kempt Mental Status: mental status grossly normal Speech and movement: Normal speech and movement present Affect: normal affect Attitude: cooperative Thought process: Normal thought process present Thought content: Normal thought content present Results Reviewed Results Reviewed: Name: Marisela Gamboa Age/Sex: 48/F : 1975 Unit#: [id number] Attend Dr: Peter Mccloud MD Re01/06/24 Status: REG REF Location: .LAB Disch: SPEC : [id number] NICOLE: 01/06/24 STATUS: COMP REQ : [id number] RECD: 01/06/[address]: Peter Mccloud MD COMP: 01/06/24 ENTERED: 01/06/[address]: Leydi Yung MD ORDERED: BMP Test Result Flag Reference Sodium 139 135-145 mmol/L Potassium 3.9 3.3-5.1 mmol/L CL 105 96-108 mmol/L CO2 26 22-29 mmol/L Gap 12 12-20 BUN 9 9-16 mg/dL Creat 0.99 0.5-1.4 mg/dL eGFR > 60 Chronic Kidney Disease: Estimated GFR < 60 mL/min/1.73m2 Severe Kidney Disease: Estimated GFR < 15 mL/min/1.73m2 Glucose, Random 104 60-115 mg/dL CA 9.3 # 8.4-10.2 mg/dL Coding Level of Care Code Est Pt Prev Care 40-64y(01449) Diagnoses Encounter for screening for malignant neoplasm of colon Z12.11 Screening for malignant neoplasm of cervix Z12.4 Additional Codes STEPHANIE-7 Assessment Billing - STEPHANIE-7 Assessment Tool: STEPHANIE-7 Assessment 44899 ([id number]) PHQ-9 - 58182 - PHQ-9 Billing: Yes ([id number]) Assessment & Plan Assessment & Plan (1) Encounter for screening for malignant neoplasm of colon: Code(s): Z12.11 - Encounter for screening for malignant neoplasm of colon (2) Screening for malignant neoplasm of cervix: Code(s): Z12.4 - Encounter for screening for malignant neoplasm of cervix Plan I discussed the patient's current concerns regarding cardiovascular findings, emphasizing that trace valve regurgitations often hold minor clinical implications, yet require ongoing observation. Is scheduled for a CT cardiac coronary angiogram at [facility] next week , ordered by cardiology. The patient expressed anxiety about heart health, attributed to recent results, and we discussed the reassurance provided by normal contractility and systolic function findings. The significance of elective lifestyle adjustments, including exercise, tobacco cessation, and stress-relief practices like yoga, were highlighted as beneficial for both physical and mental health. Additionally, the patient was encouraged to pursue full preventative screenings, including mammograms and colonoscopy, to enhance comprehensive health management. - Reduction in tobacco consumption, exploring further cessation aids if necessary. - Annual mammogram recommended and ordered. - Colonoscopy referral given, pending scheduling with gastrointestinal specialists. - Pap smear overdue, referral to OBGYN provided for cervical cancer screening. - Blood pressure and cholesterol remain within normal limits. - Vaccinations: Allergies to COVID vaccination noted; last tetanus shot in 2020, declined flu vaccine. - Diet and exercise discussion for weight management and cardiovascular health. Patient was informed and verbally consented to the use of an ambient scribe for clinic note documentation during this visit. Orders: Orders MM tomosynthesis screening BI 01/06/24 Z12.31 - Encounter for screening mammogram for malignant neoplasm of breast Referrals [employer] Referral Z12.4 - Encounter for screening for malignant neoplasm of cervix Gastroenterology Referral Z12.11 - Encounter for screening for malignant neoplasm of colon Medications: Refilled amlodipine (Norvasc) 7.5 mg (1.5 x 5 mg) PO DAILY 90 days 135 tabs 3RF
== END 2024-01-06 11:59 | disposition home or self-care (01) ==
PROVIDERS: PCP Internal Medicine; Visit Provider Internal Medicine
DX: Z00.00 Encounter for general adult medical examination without abnormal findings (principal); Z12.11 Encounter for screening for malignant neoplasm of colon

== ENCOUNTER 2024-02-07 10:55 | Outpatient (AMB) | payer OTHER, SELFPAY ==
--- OUTSIDE RECORDS SUMMARY | 2024-02-07 10:58 | XMS_ITS | Data Portability ---
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 Lab lipid panel, serum 2018 [facility], [address] [place], [address], 9 15:13:34 pap, LB + HPV 2018 [facility] (Pathology), [address] [place], [address], 9 12:45:57 Referral neurologist referral - Patient presents with multiple constitutio nal symptoms of headache, intermitten t neuropathy, tremor, diaphoresis , palpitation s, limb weakness, cognitive slowing and chest pain. Patient would like a neurology evaluation. Patient is concerned for multiple sclerosis given family history. 2018 uriel Sebastian MD, [address], [place], [address], 0 15:33:59 Procedures None recorded. Surgeries None recorded. Imaging MAMMO, screening, digital, bilateral 2018 [facility] (Imaging), [address], [place], [address], 0 10:03:53 Medication Orders triamcinolo ne acetonide 0.1 % topical cream 2022 023 [facility] #[id number], [address] [facility], [place], [address], 3 09:09:38 Patient TargetsNo targets recorded. Patient Instructions Encounter Date Encounter Id Patient Instructions Last Modified By Organization Details Last Modified Time 12/19/2018 [id number] deciding about using medicines to quit smoking fkim Not available 12/19/2018 14:56:21 Quitting Tobacco: Care Instructions fkim Not available 12/19/2018 14:56:22 Spent 25 minutes of dicx-fr-mpxp time, of which greater than 50% was in counseling. After a discussion of treatment options, which included consideration of best practices and patient preferences, the above treatment plan and objectives were adopted. New medication was discussed with patient including risks, benefits, possible and expected side effects. Patient understands and is willing to begin medication as prescribed. fkim Not available 12/20/2018 09:00:08 12/31/2018 [id number] deciding about using medicines to quit smoking [email or web address] Not available 12/31/2018 10:44:37 Quitting Tobacco: Care Instructions [email or web address] Not available 12/31/2018 10:44:37 Well Visit, Ages 18 to 65: Care Instructions [email or web address] Not available 12/31/2018 10:44:37 Counseling done {{Patient not ready to quit* Contemplat ing quitting Taperin g Cigarettes valarie d up for support prescrip tion for stop smoking medication given}} {{Patient not ready to quit Contemplati ng quitting Taperin g Cigarettes valarie d up for support prescrip tion for stop smoking medication given}} Goal for follow up visit {{adding exercise regular meals stress management impro ving sleep therapist identifying sponsor}} {{adding exercise regular meals stress management impro ving sleep therapist identifying sponsor}} {{adding exercise regular meals stress management impro ving sleep therapist identifying sponsor}} My Health To Do List {{go to [employer] or call s ign up for alex text 2 quit or other stop smoking alex contact [employer]}} {{go to [employer] www[employer] or call s ign up for alex text 2 quit or other stop smoking alex contact [employer]}} {{go to [employer] www[employer] or call s ign up for alex text 2 quit or other stop smoking alex contact [employer]}} keri Not available 12/31/2018 11:07:05 09/19/2020 [id number] After a discussion of treatment options, which included consideration of best practices and patient preferences, the above treatment plan and objectives were adopted. fkim Not available 09/30/2020 21:41:10 Reason for Referral Neurologist Referral for Bev ropathy Patient presents with multiple constitutional symptoms of headache, intermittent neuropathy, tremor, diaphoresis, palpitations, limb weakness, cognitive slowing and chest pain. Patient would like a neurology evaluation. Patient is concerned for multiple sclerosis given family history. Referring Physician: Donnie Garcia, Family Medicine, Encounter Date: 12/19/2018 Results Created Date Observation Date Name Description Value Unit Range Abnormal Flag Note LastModifiedBy Organization Detail LastModifiedTime 12/17/1912/16/2018 CBC w/ auto diff WBC 7.82 K/uL 3.40-1 1.20 Not Available [facility] (Outpatient) [address] [place] [address], [address], 12/16/2018 13:36:00 12/17/19 19 12/16/2018 CBC w/ auto diff RBC 5.15 M/uL 3.80-4 .80 high Not Available [facility] (Outpatient) [address] [place], [address], 12/16/2018 13:36:00 12/17/19 19 12/16/2018 CBC w/ auto diff HGB 15.4 g/dL 12.0-1 5.0 high Not Available [facility] (Outpatient) [address] [place], [address], 12/16/2018 13:36:00 12/17/19 19 12/16/2018 CBC w/ auto diff HCT 43.1 % 36.0-4 6.0 Not Available [facility] (Outpatient) [address] [place], [address], 12/16/2018 13:36:00 12/17/19 19 12/16/2018 CBC w/ auto diff plt 249 K/uL 130-40 0 Not Available [facility] (Outpatient) [address] [place], [address], 12/16/2018 13:36:00 12/17/19 19 12/16/2018 CBC w/ auto diff MCV 83.7 fL 79.0-9 8.0 Not Available [facility] (Outpatient) [address] [place], [address], 12/16/2018 13:36:00 12/17/19 19 12/16/2018 CBC w/ auto diff MCH 29.9 pg 27.0-3 4.8 Not Available [facility] (Outpatient) [address] [place], [address], 12/16/2018 13:36:00 12/17/19 19 12/16/2018 CBC w/ auto diff MCHC 35.7 g/dL 31.5-3 6.0 Not Available [facility] (Outpatient) [address] [place], [address], 12/16/2018 13:36:00 12/17/19 19 12/16/2018 CBC w/ auto diff RDW 12.4 % 10.8-1 4.6 Not Available [facility] (Outpatient) [address] [place], [address], 12/16/2018 13:36:00 12/17/19 19 12/16/2018 CBC w/ auto diff MPV 10.7 fL 9.4-12 .4 Not Available [facility] (Outpatient) [address] [place], [address], 12/16/2018 13:36:00 12/17/19 19 12/16/2018 CBC w/ auto diff NRBC 0.00 /100_ WBCs 0.00 Not Available [facility] (Out[facility]) [address] [place], [address], 12/16/2018 13:36:00 12/17/19 19 12/16/2018 CBC w/ auto diff absolute NRBC 0.00 K/uL 0.00 Not Available [facility] (Out[facility]) [address] [place], [address], 12/16/2018 13:36:00 12/17/19 19 12/16/2018 CBC w/ auto diff diff method Auto Not Available [facility] (Outpatient) [address] [place], [address], 12/16/2018 13:36:00 12/17/19 19 12/16/2018 CBC w/ auto diff neuts 64.2 % 45.30- 77.70 Not Available [facility] (Outpatient) [address] [place], [address], 12/16/2018 13:36:00 12/17/19 19 12/16/2018 CBC w/ auto diff lymphs 24.8 % 12.30- 39.70 Not Available [facility] (Out[facility]) [address] [place], [address], 12/16/2018 13:36:00 12/17/19 19 12/16/2018 CBC w/ auto diff monos 6.4 % 4.10-1 2.80 Not Available [facility] (Out[facility]) [address] [place], [address], 12/16/2018 13:36:00 12/17/19 19 12/16/2018 CBC w/ auto diff eos 4.0 % 0-7.2 Not Available [facility] (Outpatient) [address] [place], [address], 12/16/2018 13:36:00 12/17/19 19 12/16/2018 CBC w/ auto diff basos 0.5 % 0-2.80 Not Available [facility] (Outpatient) [address] [place], [address], 12/16/2018 13:36:00 12/17/19 19 12/16/2018 CBC w/ auto diff granulocytes , immature (%) 0.1 % 0.0-0. 9 Not Available [facility] (Outpatient) [address] [place], [address], 12/16/2018 13:36:00 12/17/19 19 12/16/2018 CBC w/ auto diff absolute neuts 5.02 K/uL 1.40-7 .70 Not Available [facility] (Outpatient) [address] [place], [address], 12/16/2018 13:36:00 12/17/19 19 12/16/2018 CBC w/ auto diff absolute lymphs 1.94 K/uL 0.60-3 .20 Not Available [facility] (Outpatient) [address] [place], [address], 12/16/2018 13:36:00 12/17/19 19 12/16/2018 CBC w/ auto diff absolute monos 0.50 K/uL 0.11-0 .59 Not Available [facility] (Outpatient) [address] [place], [address], 12/16/2018 13:36:00 12/17/19 19 12/16/2018 CBC w/ auto diff absolute eos 0.31 K/uL 0.01-0 .50 Not Available [facility] (Outpatient) [address] [place], [address], 12/16/2018 13:36:00 12/17/19 19 12/16/2018 CBC w/ auto diff absolute basos 0.04 K/uL 0.00-0 .08 Not Available [facility] (Out[facility]) [address] [place], [address], 12/16/2018 13:36:00 12/17/19 19 12/16/2018 CBC w/ auto diff granulocytes , immature 0.01 K/uL 0.00-0 .05 Not Available [facility] (Outpatient) [address] [place], [address], 12/16/2018 13:36:00 12/17/19 19 12/16/2018 tropo neetu T, serum troponin-T, high sensitivity (gen 5) <6 NG/L 0-9 Not Available [facility] (Outpatient) [address] [place], [address], 12/16/2018 13:47:00 12/17/19 19 12/16/2018 hCG, quali tativ e, serum HCG, qualitative Negati ve IU/L negati ve Not Available [facility] (Outpatient) [address] [place], [address], 12/16/2018 13:51:37 12/17/19 19 12/16/2018 BMP, blood sodium 138 mmol/ L 133-14 6 Not Available [facility] (Out[facility]) [address] [place], [address], 12/16/2018 13:57:21 12/17/19 19 12/16/2018 BMP, blood chloride 101 mmol/ L 96-108 Not Available [facility] (Outpatient) [address] [place], [address], 12/16/2018 13:57:21 12/17/19 19 12/16/2018 BMP, blood potassium 3.6 mmol/ L 3.3-5. 1 Not Available [facility] (Out[facility]) [address] [place], [address], 12/16/2018 13:57:21 12/17/19 19 12/16/2018 BMP, blood CO2 26 mmol/ L 21-35 Not Available [facility] (Outpatient) [address] [place], [address], 12/16/2018 13:57:21 12/17/19 19 12/16/2018 BMP, blood BUN 7 mg/dL 6-19 Not Available [facility] (Out[facility]) [address] [place], [address], 12/16/2018 13:57:21 12/17/19 19 12/16/2018 BMP, blood creatinine 0.70 mg/dL 0.5-1. 5 Not Available [facility] (Out[facility]) [address] [place], [address], 12/16/2018 13:57:21 12/17/19 19 12/16/2018 BMP, blood glucose 93 mg/dL 70-99 Not Available [facility] (Outpatient) [address] [place], [address], 12/16/2018 13:57:21 12/17/19 19 12/16/2018 BMP, blood calcium 9.2 mg/dL 8.4-10 .3 Not Available [facility] (Outpatient) [address] [place], [address], 12/16/2018 13:57:21 12/17/19 19 12/16/2018 BMP, blood eGFR 108 mL/mi n/1.7 3m2 >59 If patie nt is black , multi ply resul t by 1.159 . Estim ated glome rular filtr ation rate calcu lated using the CKD-E PI equat ion. Not Available [facility] (Outpatient) [address] [place], [address], 12/16/2018 13:57:21 12/17/19 19 12/16/2018 BMP, blood anion gap 15 mmol/ L 10-20 Not Available [facility] (Outpatient) [address] [place], [address], 12/16/2018 13:57:21 12/17/19 19 12/16/2018 tropo neetu T, serum troponin-T, high sensitivity (gen 5) <6 NG/L 0-9 Not Available [facility] (Outpatient) [address] [place], [address], 12/16/2018 15:22:02 01/01/20 19 12/31/2018 lipid panel , serum cholesterol 174 mg/dL <200 mg/dl Vladimir able 200-2 39 mg/dl Borde rline High >240 mg/dl High Not Available [address], [address], 12/31/2018 15:13:34 01/01/20 19 12/31/2018 lipid panel , serum triglyceride s 81 mg/dL <150 mg/dL Elizabeth l 150-1 99 mg/dL Borde rline High 200-4 99 mg/dL High >500 mg/dL Very High Not Available [address], [address], 12/31/2018 15:13:34 01/01/20 19 12/31/2018 lipid panel , serum direct HDL 51 mg/dL <40 mg/dl - Major Risk for CHD >60 mg/dl - Negat andrew Risk for CHD Not Available [address], [address], 12/31/2018 15:13:34 01/01/20 19 12/31/2018 LDL, direc t, serum direct LDL 113 mg/dL RISK CATEG ORY LDL GOAL _ CHD or CHD Risk Equiv alent s <100 mg/dl (10-y ear risk >20%) 2+ Risk Facto rs <130 mg/dl (10-y ear risk <= 20%) 0-1 Risk Facto r??? <160 mg/dl ??? Almos t all peopl e with 0-1 risk facto r have a 10 year risk <10%, thus 10 year risk asses ment in peopl e with 0-1 risk facto r is not neces yakov. Not Available [facility] [address] [facility], [place], [address], 12/31/2018 15:13:35 01/01/20 19 01/05/2019 pap, LB path report [facility] [address] [facility] [place] [address] Lab Direc tor: Alice mckinney MD CLIENT DIRECTOR Cytol ogy Repor t Acces avtar #: [id number] FINAL DIAGN OSIS A. PAP SMEAR (SURE PATH) CE: SPECI MEN ADEQU ACY: Satis facto ry for evalu ation ; trans forma tion zone prese nt. INTER PRETA TION: NEGAT ANDREW FOR INTRA EPITH ELIAL LESIO N OR MALIG LAURITA . Elect jared bell Valarie d Out By: Melissa Wallace [facility], [place]( CP) The Pap test is a scree jacquelin test prima rily for squam ous cance rs and precu rsors and has assoc iated false -nega tive and false -posi tive resul ts. New techn ologi es such as liqui d-bas ed prepa ratio ns may decre ase but will not elimi ibrahima all false -nega tive resul ts. Regul ar sampl ing and follo w-up of unexp chevy d clini devonte signs and sympt oms are recom marta d to minim ize false negat andrew resul ts. PROCE DURES /ADDE NDA HPV Testi ng (Requ ested ) Order ed Date: 01/01 A. PAP SMEAR (SURE PATH) CE: Human Papil mag Virus Test Negat andrew for high- risk human papil lomav irus types 16, 18, 45 and the Othe r high risk probe set (Incl udes 31, 33, 35, 39, 51, 52, 56, 58, 59, 66, 68) by Kiko [facility] HR-HP V angela sis. Clini devonte corre latio n is advis ed. This HPV test was perfo rmed at [facility], [address] [facility]. This test has been FDA appro andres for SureP ath cervi devonte cytol ogy speci mens. The accur acy and preci avtar of this test for all other speci men sourc es has been verif ied in the Cytop athol ogy [facility] and has not been clear ed or appro andres by the U.S. Food and Drug Admin istra tion. Clini devonte corre latio n is advis ed. Arleen ctron icall y Valarie d Out By: SINDI Quarles(A [facility])M B on 01/05 14:04 CLINI DEVONTE HISTO RY Date of Last Menst rual Perio d: 12-10 Other Clini devonte Condi tions : Scree jacquelin Pap SPECI MEN SOURC E A: PAP SMEAR (SURE PATH) CE Patie nt Name: HITESH RAMIRES : 1975 (Age: 43) Sex: F 3 Insti tutio n: [facility] Locat ion: [facility] Date of Colle ction : 12/31 Date of Acces avtar: 01/01 Repor moses: 01/02 12:07 Resul ts to: Marixa Boggs n-Vec yahir Not Available [facility] (Outpatient) [address] [place], [address], 01/05/2019 15:21:58 01/25/20 20 01/27/2020 rubel la igg Ab scree n, serum rubella * POSITI VE * positi ve (immun e) Not Available [facility] [address] [place], [address], 01/27/2020 11:58:15 01/25/20 20 01/29/2020 hepat itis B surfa ce Ab, quant itati ve, serum hepatitis B surface Ab immunity, qn <5 mIU/m L > or = 10 low PATIE NT DOES NOT HAVE IMMUN ITY TO HEPAT ITIS B VIRUS . For addit ional infor wan villalta e refer to http: //[facility] [place].que [employer]ia gnost [employer].c om/fa q/FAQ 105 (This link is being provi ded for infor malik nal/ educa dave l purpo ses only) . Not Available [facility] [place] [facility] [address], [place], [address], 01/29/2020 05:47:32 01/25/2001/29/2020 measl es igg Ab, serum measles Ab (IgG), immune status 54.20 AU/mL normal AU/mL Inter preta tion ----- ----- ----- ---- <13.5 0 Not consi stent with immun ity 13.50 -16.4 9 Equiv ocal >16.4 9 Consi stent with immun ity The prese nce of measl es IgG sugge sts immun izati on or past or curre nt infec tion with measl es virus . For addit ional infor wan villalta e refer to http: //[facility].Aman stDia gnost ics.c om/fa q/FAQ 162 (This link is being provi ded for infor malik nal/ educa dave l purpo ses only. ) Not Available [facility] [place] [facility] [address], [place], [address], 01/29/2020 05:47:37 01/25/2001/29/2020 dipht heria Ab, serum diphtheria antitoxoid 0.22 IU/mL Refer ence Range : 0.10 IU/mL or great er Inter preti ve Crite aureliano: <0.10 IU/mL Nonpr otect andrew Antib teodoro Level > Or = 0.10 IU/mL Prote ctive Antib teodoro Level Antib teodoro level s >= 0.10 IU/mL are consi dered prote ctive . After a prima ry serie s of three prope rly space d dipht heria toxoi d doses in adult s or four doses in infan ts, a prote ctive level of antit oxin (defi ryan as > or = 0.10 IU of antit oxin/ mL) is reach ed in more than 95% of immun ized perso ns. This test was devel operi and its angela tical perfo rmanc e fabricio cteri stics have been deter mined by [facility] Ronaldo liu [facility] daija, [place], [place]. It has not been clear ed or appro andres by the U.S. Food and Drug Admin istra tion. This assay has been valid ated pursu ant to the CLIA regul ation s and is used for clini devonte purpo ses. Not Available [facility] [place] [facility] [address], [place], [address], 01/29/2020 05:47:37 01/25/2001/29/2020 mumps igg Ab, serum mumps virus Ab (IgG), immune status 293.00 AU/mL normal AU/mL Inter preta tion ----- -- ----- ----- ----- - <9.00 Not consi stent with immun ity 9.00- 10.99 Equiv ocal >10.9 9 Consi stent with immun ity The prese nce of mumps IgG antib teodoro sugge sts immun izati on or past or curre nt infec tion with mumps virus . Not Available [facility] [place] [facility] [address], [place], [address], 01/29/2020 05:47:38 01/25/2001/29/2020 tetan us Ab, serum tetanus antitoxoid 1.69 IU/mL Refer ence range (Heal thy Immun ized) : 0.10 IU/mL or great er Antib teodoro level s of >= 0.10 IU/mL are consi dered prote ctive . Howev er, tetan us can still occur in some indiv idual s with such antib teodoro level s. These resul ts shoul d not be used to deter mine the neces sity to admin ister antit oxin when clini yohan indic ated. This test was devel oped and its angela tical perfo rmanc e fabricio cteri stics have been deter mined by [facility], [place], [place]. It has not been clear ed or appro andres by the U.S. Food and Drug Admin istra tion. This assay has been valid ated pursu ant to the CLIA regul ation s and is used for clini devonte purpo ses. Not Available [facility] [place] [facility] [address], [address], 01/29/2020 05:47:38 01/25/2001/29/2020 quant ifero n(R)- TB gold plus, 1 tube quantiferon( R)-TB gold plus, 1 tube NEGATI VE negati ve normal Negat andrew test resul t. M. tuber culos is compl ex infec tion unlik nena. Not Available [facility] [place] [facility] [address], [address], 01/29/2020 05:47:39 01/25/2001/29/2020 quant ifero n(R)- TB gold plus, 1 tube nil 0.04 IU/mL normal Not Available [facility] [place] [facility] [address], [address], 01/29/2020 05:47:39 01/25/20 20 01/29/2020 quant ifero n(R)- TB gold plus, 1 tube mitogen-nil >10.00 IU/mL normal Not Available [facility] [place] [facility] [address], [address], 01/29/2020 05:47:39 01/25/20 20 01/29/2020 quant ifero n(R)- TB gold plus, 1 tube TB1-nil 0.34 IU/mL normal Not Available [facility] [place] [facility] [address], [address], 01/29/2020 05:47:39 01/25/20 20 01/29/2020 quant ifero n(R)- TB gold plus, 1 tube TB2-nil 0.25 IU/mL normal The Nil tube value refle cts the backg round inter feron gamma immun e respo nse of the patie nt's blood sampl e. This value has been subtr acted from the patie nt's displ ayed TB and Mitog en resul ts. Lower than expec moses resul ts with the Mitog en tube preve nt false -nega tive Quant ifero n readi ngs by detec ting a patie nt with a poten tial immun e suppr essiv e condi tion and/o r subop timal pre-a nalyt ical speci men handl ing. The TB1 Antig en tube is coate d with the M. tuber culos is-sp ecifi c antig ens desig ryan to elici t respo nses from TB antig en prime d CD4+ helpe r T-lym phocy rebecca. The TB2 Antig en tube is coate d with the M. tuber culos is-sp ecifi c antig ens desig ryan to elici t respo nses from TB antig en prime d CD4+ helpe r and CD8+ cytot oxic T-lym phocy rebecca. For addit ional infor wan villalta e refer to https ://ed joannati on.qu darrick [employer]/f aq/FA Q204 (This link is being provi ded for infor malik montano/ toño saravia purpo ses only. ) Not Available [facility] [place] [facility] [address] [place] [address] B, [place], [address], 01/29/2020 05:47:39 01/25/2001/29/2020 vzv (vari suzanne -zost er) igg, serum varicella zoster virus Ab (immunity scr),acif (s) > or = 1:4 normal REFER ENCE RANGE : > or = 1:4 <1:4 Antib teodoro Not Detec moses - evide nce for susce ptabi lity to VZV infec tion. > or = 1:4 Antib teodoro Detec moses - evide nce for immun ity again st VZV infec tion. A posit andrew titer (grea ter than or equal to 1:4) indic ates a histo ry of VZV infec tion or vacci natio n. In infec moses indiv idual s, this test is usual ly posit andrew withi n 2 days after the onset of rash and is there fore posit andrew for life. The absen ce of detec table antib teodoro may indic ate susce ptabi lity to VZV infec tion. This test was devel oped and its angela tical perfo rmanc e fabricio cteri stics have been deter mined by [facility] Infec tious Disea se. It has not been clear ed or appro andres by FDA. This assay has been valid ated pursu ant to the CLIA regul ation s and is used for clini devonte purpo ses. Not Available [facility] [facility] [place] [facility] [address], [address], 01/29/2020 05:47:40 01/25/20 20 01/29/2020 borde tella pertu ssis igg+i gm+ig a Ab, serum bordetella pertussis toxin(PT) Ab (IgG) 8 IU/mL normal Not Available [facility] [place] [facility] [address], [address], 01/29/2020 05:47:40 01/25/2001/29/2020 borde tella pertu ssis igg+i gm+ig a Ab, serum bordetella pertussis toxin(PT) Ab (IgA) 2 IU/mL normal REFER ENCE RANGE : Age (year s) (IU/m L) IgG: < or = 10 <66 11-59 <43 > or = 60 <32 IgA: <40 <5 > or = 40 <8 This assay canno t be used to asses s prote ctive immun ity to pertu ssis becau se the speci fic antib odies and antib teodoro level s that corre late with prote ction have not been well defin ed. The prima ry inten t of the assay is to aid in the diagn osis of infec tion follo wing natur al expos ure to Borde telllisa pertu ssis. The indic ated refer ence range s refle ct the 90th perce ntile of antib teodoro level s in sera from healt hy child chay and blood donor s; thus, antib teodoro level s above the refer ence range sugge st recen t infec tion or vacci natio n withi n the last few month s. Detec tion of PT IgG is more sensi tive than detec tion of PT IgA, since not all infec moses or recen tly-v accin ated indiv idual s mount a detec table PT IgA respo nse. This test was devel oped and its angela tical perfo rmanc e fabricio cteri stics have been deter mined by [facility] Infec tious Disea se. It has not been clear ed or appro andres by FDA. This assay has been valid ated pursu ant to the CLIA regul ation s and is used for clini devonte purpo ses. For addit ional infor wan villalta e refer to http: //sukhdev nuñez.aman stdia gnost ics.c om/fa q/FAQ 209. (This link is being provi ded for infor malik montano/ educa dave l purpo ses only. ) Not Available [employer] [address], [place], [address], 01/29/2020 05:47:40 11/01/19 22 10/31/2021 CBC AND DIFFE RENTI AL WBC 9.93 K/uL 4.00-1 1.00 Not Available [facility] (Outpatient) [address] [place], [address], 10/31/2021 18:00:33 11/01/19 22 10/31/2021 CBC AND DIFFE RENTI AL RBC 5.23 M/uL 3.72-5 .30 Not Available [facility] (Outpatient) [address] [place], [address], 10/31/2021 18:00:33 11/01/19 22 10/31/2021 CBC AND DIFFE RENTI AL HGB 15.5 g/dL 10.6-1 5.5 Not Available [facility] (Outpatient) [address] [place], [address], 10/31/2021 18:00:33 11/01/19 22 10/31/2021 CBC AND DIFFE RENTI AL HCT 43.4 % 32.0-4 5.0 Not Available [facility] (Outpatient) [address] [place], [address], 10/31/2021 18:00:33 11/01/19 22 10/31/2021 CBC AND DIFFE RENTI AL plt 232 K/uL 140-43 0 Not Available [facility] (Outpatient) [address] [place], [address], 10/31/2021 18:00:33 11/01/19 22 10/31/2021 CBC AND DIFFE RENTI AL MCV 83.0 fL 78.0-9 7.0 Not Available [facility] (Outpatient) [address] [place], [address], 10/31/2021 18:00:33 11/01/19 22 10/31/2021 CBC AND DIFFE RENTI AL MCH 29.6 pg 25.0-3 3.0 Not Available [facility] (Outpatient) [address] [place], [address], 10/31/2021 18:00:33 11/01/19 22 10/31/2021 CBC AND DIFFE RENTI AL MCHC 35.7 g/dL 32.0-3 6.0 Not Available [facility] (Outpatient) [address] [place], [address], 10/31/2021 18:00:33 11/01/19 22 10/31/2021 CBC AND DIFFE RENTI AL RDW 12.6 % 11.0-1 6.0 Not Available [facility] (Outpatient) [address] [place], [address], 10/31/2021 18:00:33 11/01/19 22 10/31/2021 CBC AND DIFFE RENTI AL MPV 10.8 fL 8.4-12 .8 Not Available [facility] (Outpatient) [address] [place], [address], 10/31/2021 18:00:33 11/01/19 22 10/31/2021 CBC AND DIFFE RENTI AL diff method Auto Not Available [facility] (Outpatient) [address] [place], [address], 10/31/2021 18:00:33 11/01/19 22 10/31/2021 CBC AND DIFFE RENTI AL neuts 71.3 % 43.0-7 5.0 Not Available [facility] (Outpatient) [address] [place], [address], 10/31/2021 18:00:33 11/01/19 22 10/31/2021 CBC AND DIFFE RENTI AL lymphs 19.0 % 18.2-4 7.4 Not Available [facility] (Outpatient) [address] [place], [address], 10/31/2021 18:00:33 11/01/19 22 10/31/2021 CBC AND DIFFE RENTI AL monos 7.2 % 4.00-1 1.00 Not Available [facility] (Outpatient) [address] [place], [address], 10/31/2021 18:00:33 11/01/19 22 10/31/2021 CBC AND DIFFE RENTI AL eos 1.9 % 0.0-8. 0 Not Available [facility] (Outpatient) [address] [place], [address], 10/31/2021 18:00:33 11/01/19 22 10/31/2021 CBC AND DIFFE RENTI AL basos 0.4 % 0.0-2. 0 Not Available [facility] (Outpatient) [address] [place], [address], 10/31/2021 18:00:33 11/01/19 22 10/31/2021 CBC AND DIFFE RENTI AL granulocytes , immature (%) 0.2 % 0.0-0. 9 Not Available [facility] (Outpatient) [address] [place], [address], 10/31/2021 18:00:33 11/01/19 22 10/31/2021 CBC AND DIFFE RENTI AL absolute neuts 7.08 K/uL 1.80-7 .70 Not Available [facility] (Outpatient) [address] [place], [address], 10/31/2021 18:00:33 11/01/19 22 10/31/2021 CBC AND DIFFE RENTI AL absolute lymphs 1.89 K/uL 1.00-3 .10 Not Available [facility] (Outpatient) [address] [place], [address], 10/31/2021 18:00:33 11/01/19 22 10/31/2021 CBC AND DIFFE RENTI AL absolute monos 0.71 K/uL 0.20-0 .80 Not Available [facility] (Outpatient) [address] [place], [address], 10/31/2021 18:00:33 11/01/19 22 10/31/2021 CBC AND DIFFE RENTI AL absolute eos 0.19 K/uL 0.00-0 .80 Not Available [facility] (Outpatient) [address] [place], [address], 10/31/2021 18:00:33 11/01/19 22 10/31/2021 CBC AND DIFFE RENTI AL absolute basos 0.04 K/uL 0.00-0 .09 Not Available [facility] (Outpatient) [address] [place], [address], 10/31/2021 18:00:33 11/01/19 22 10/31/2021 CBC AND DIFFE RENTI AL granulocytes , immature 0.02 K/uL 0.00-0 .05 Not Available [facility] (Outpatient) [address] [place], [address], 10/31/2021 18:00:33 11/01/19 22 10/31/2021 HCG, SERUM QUALI TATIV E HCG, qualitative Negati ve IU/L negati ve Not Available [facility] (Outpatient) [address] [place], [address], 10/31/2021 18:16:56 11/01/19 22 10/31/2021 BASIC METAB OLIC PANEL sodium 140 mmol/ L 133-14 6 Not Available [facility] (Outpatient) [address] [place], [address], 10/31/2021 18:54:24 11/01/19 22 10/31/2021 BASIC METAB OLIC PANEL chloride 104 mmol/ L 96-108 Not Available [facility] (Outpatient) [address] [place], [address], 10/31/2021 18:54:24 11/01/19 22 10/31/2021 BASIC METAB OLIC PANEL potassium 3.5 mmol/ L 3.3-5. 1 Not Available [facility] (Outpatient) [address] [place], [address], 10/31/2021 18:54:24 11/01/19 22 10/31/2021 BASIC METAB OLIC PANEL CO2 22 mmol/ L 21-35 Not Available [facility] (Outpatient) [address] [place], [address], 10/31/2021 18:54:24 11/01/19 22 10/31/2021 BASIC METAB OLIC PANEL BUN 7 mg/dL 6-19 Not Available [facility] (Outpatient) [address] [place], [address], 10/31/2021 18:54:24 11/01/19 22 10/31/2021 BASIC METAB OLIC PANEL creatinine 0.80 mg/dL 0.5-1. 5 Not Available [facility] (Outpatient) [address] [place], [address], 10/31/2021 18:54:24 11/01/19 22 10/31/2021 BASIC METAB OLIC PANEL glucose 87 mg/dL 70-99 Not Available [facility] (Outpatient) [address] [place], [address], 10/31/2021 18:54:24 11/01/19 22 10/31/2021 BASIC METAB OLIC PANEL calcium 9.4 mg/dL 8.4-10 .3 Not Available [facility] (Outpatient) [address] [place], [address], 10/31/2021 18:54:24 11/01/19 22 10/31/2021 BASIC METAB OLIC PANEL eGFR 93 mL/mi n/1.7 3m2 >59 Estim ated glome rular filtr ation rate calcu lated using the CKD-E PI refit equat ion. Not Available [facility] (Outpatient) [address] [place], [address], 10/31/2021 18:54:24 11/01/19 22 10/31/2021 BASIC METAB OLIC PANEL anion gap 18 mmol/ L 10-20 Not Available [facility] (Outpatient) [address] [place], [address], 10/31/2021 18:54:24 11/01/19 22 10/31/2021 MALAR IA/BA BESIA EXAM special requests None Not Available [facility] (Outpatient) [address] [place], [address], 11/01/2021 07:58:02 11/01/19 22 11/01/2021 MALAR IA/BA BESIA EXAM malaria smear No Malari a or Babesi a observ ed Not Available [facility] (Outpatient) [address] [place], [address], 11/01/2021 07:58:02 11/01/19 22 11/01/2021 LYME SCREE N WITH REFLE X TO IMMUN OBLOT , BLOOD lyme Ab IgG Negati ve negati ve Not Available [facility] (Outpatient) [address] [place], [address], 11/01/2021 11:06:03 11/01/19 22 11/01/2021 LYME SCREE N WITH REFLE X TO IMMUN OBLOT , BLOOD lyme Ab IgM Negati ve negati ve Not Available [facility] (Outpatient) [address] [place], [address], 11/01/2021 11:06:03 11/01/19 22 11/03/2021 BABES IA SPECI ES PCR B.microti PCR Negati ve negati ve Not Available [facility] (Outpatient) [address] [place], [address], 11/03/2021 19:45:31 11/01/19 22 11/03/2021 BABES IA SPECI ES PCR B.duncani PCR Negati ve negati ve Not Available [facility] (Outpatient) [address] [place], [address], 11/03/2021 19:45:31 11/01/19 22 11/03/2021 BABES IA SPECI ES PCR B.divergens/ MO-1 PCR Negati ve negati ve Not Available [facility] (Outpatient) [address] [place], [address], 11/03/2021 19:45:31 11/01/19 22 11/03/2021 EHRLI CELESTE/ ANAPL ASMA PCR anaplasma phagocyto Negati ve negati ve Not Available [facility] (Outpatient) [address] [place], [address], 11/03/2021 19:45:32 11/01/19 22 11/03/2021 EHRLI CELESTE/ ANAPL ASMA PCR ehrlichia chaffeens Negati ve negati ve Not Available [facility] (Outpatient) [address] [place], [address], 11/03/2021 19:45:32 11/01/19 22 11/03/2021 EHRLI CELESTE/ ANAPL ASMA PCR ehrl ewingii/cani s Negati ve negati ve Not Available [facility] (Outpatient) [address] [place], [address], 11/03/2021 19:45:32 11/01/19 22 11/03/2021 EHRLI CELESTE/ ANAPL ASMA PCR ehrl muris-like Negati ve negati ve Not Available [facility] (Outpatient) [address] [place], [address], 11/03/2021 19:45:32 12/17/19 19 12/16/2018 xr chest Pa and later al 2 views HISTOR Y: - CHEST PAIN [SIGN/ SX] TECHNI QUE: AP and latera l radiog raphs of the chest obtain ed. COMPAR RICA: None. FINDIN GS: The heart and medias tinum are normal sized. There is no focal lung consol idatio n or infilt rate. There is no pneumo thorax . IMPRES AVTAR: No acute chest pathol ogy. POS - [facility]-RW Electr onical ly Signed by: Chito Fonseca ms on 019 1:51 PM Interp reted by: Chito Fonseca ms, MD Signed by: Chito Fonseca ms, MD 9 Final result P.s chest pain, cant remove ring DONNIE BETH [facility] [address] [place], [address], 12/16/2018 20:20:56 03/11/19 20 03/11/2019 MAMMO , scree jacquelin, digit al, bilat eral OBSERV ATION: Bilate ral Digita l Screen ing Mammog oscar utiliz ing 3D tomosy nthesi s and 2D recons tructi on 44-yea r-old female with no curren t breast sympto ms. This a baseli ne exam. Interp retati on made in conjun ction with comput er-aid ed detect ion. The breast s are almost entire ly fatty. The right breast is smalle r than the left which may be a chroni c findin g and can be correl ated clinic ally. Left nipple pierci ng. There are no suspic ious masses , areas of alireza ectura l distor tion, or suspic ious cluste rs of microc alcifi cation s. IMPRES AVTAR: No mammog raphic eviden ce of malign joe. Recomm end routin e survei llance . Patien t notifi ed by letter . BI-RAD S CATEGO RY 2 - BENIGN Densit y - 1 POS - VMG Electr onical ly signed Lindy glass Physic true: Nick woodruff MD [address] (Imaging) [address] [place] [address] , [place], [address], 03/11/2019 16:36:49 03/11/19 20 03/11/2019 MAMMO , scree jacquelin, digit al, bilat eral --->>> Bilate ral Digita l Screen ing Mammog oscar<<< --- 44-yea r-old female with no curren t breast sympto ms. This a baseli ne exam. Interp retati on made in conjun ction with comput er-aid ed detect ion. The breast s are almost entire ly fatty. The right breast is smalle r than the left which may be a chroni c findin g and can be correl ated clinic ally. Left nipple pierci ng. There are no suspic ious masses , areas of alireza ectura l distor tion, or suspic ious cluste rs of microc alcifi cation s. IMPRES AVTAR: No mammog raphic eviden ce of malign joe. Recomm end routin e survei llance . Patien t notifi ed by letter . BI-RAD S CATEGO RY 2 - BENIGN Densit y - 1 POS - VMG Readin g Physic true: Nick woodruff MD [address] (Imaging) [address] , [place], [address], 03/11/2019 16:36:49 03/21/19 20 03/21/2019 xr chest Pa and later al 2 views Fronta l and latera l views are compar ed with the prior study of 2018 and reveal the lungs to be well-e xpande d and overal l clear withou t focal infilt rates or pleura l effusi ons presen t. The heart and pulmon rodney vessel s are within normal limits in size and the visual ized bony thorax appear s intact . IMPRES AVTAR: No eviden ce of active cardio pulmon rodney diseas e. POS CDHRAD BOARDW S11 Electr onical ly Signed by: KENNY MURILLO on 03/21/19 12:38 PM Interp reted by: Kenny Murillo MD Signed by: Kenny Murillo MD 03/21/19 Final result P.s. Cough and conges tion x 1 week DONNIE GARCIA [facility] [address] [place] [address], [address], 03/22/2019 09:11:11 Result Notes None recorded. 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 Procedures Surgical History Date Name Laterality Status Provider Name and Address Organization Details Recorded Time 3 Smoking cessation counseling completed Anne Snow MA [facility] 10/29/2022 08:47:12 9 Smoking cessation counseling completed Maddy corral PA-C [address] [place] [address], [phone], [facility] 12/31/2018 10:32:46 9 Carbon Monoxide Testing completed Maddy corral PA-C [address] [place] [address], [phone], [facility] 12/31/2018 10:32:46 9 Smoking cessation counseling completed Donnie Garcia MD [address] [place] [address], [phone], [facility] 12/20/2018 08:59:29 9 Carbon Monoxide Testing completed Carmelita Key [facility] 12/19/2018 14:20:32 6 Smoking cessation counseling completed Imani Rush MA [facility] 05/18/2015 15:20:42 6 Carbon Monoxide Testing completed Imani Rush MA [facility] 05/18/2015 15:26:09 Imaging Results Imaging Date Name Status [facility] Details LastModified Time 12/16/2018 xr chest Pa and lateral 2 views completed [facility] [address] [facility], [place], [address], 12/16/2018 20:20:56 03/11/2019 MAMMO, screening, digital, bilateral completed [address] (Imaging) [address], [place], [address], 03/11/2019 16:36:49 03/11/2019 MAMMO, screening, digital, bilateral completed [address] (Imaging) [address], [place], [address], 03/11/2019 16:36:49 03/21/2019 xr chest Pa and lateral 2 views completed [facility] [address] [place], [address], 03/22/2019 09:11:11 Procedure Notes None recorded. Medical Equipment None Reported. Allergies Allergen ID Allergen Name Allergen Category Reaction Reaction Severity Criticality Documentation Date Start Date Code Code System Note Provider Name and Address Organization Details Recorded Time 494550 Medicinal product containin g tetracycl ine structure and acting as antibacte rial agent (product) medicatio n other severe Not available 03/14/2012 47691 1004 SNOMED [facility] 10:41:46 963089 Bactrim medicatio n Not available Not available Not available 10/31/2021 41076 9 RxNorm pt state s that her face turne d red Elvia [facility] 2 16:12:24 090459 doxycycli ne Not available Not available Not available Not available 10/29/2022 3640 RxNorm [facility] 3 08:44:11 308062 bacitraci n / neomycin / polymyxin B medicatio n Not available Not available Not available 10/29/2022 05118 9 RxNorm [facility] 3 08:44:59 888452 Medicinal product containin g penicilli n and acting as antibacte rial agent (product) medicatio n Not available Not available Not available 10/29/2022 89582 05 SNOMED [facility] 08:45:28 258483 amoxicill in medicatio n Not available Not available Not available 10/29/2022 723 RxNorm AGUSTINA Kelsey [facility] 3 08:45:36 307683 adhesive tape environme nt,medica tion Not available Not available Not available 10/29/2022 Anne Snow MA [facility] 3 08:51:01 Medications Name Sig Start Date Stop Date Status Note LastModified by Organization Details LastModified Time Xanax 0.5 mg tablet Take 1 tablet twice a day by oral route as needed. 12/[address]Footi pacheco 05/18/15 cb Not Available Not Available Not Available erythromy radha 500 mg tablet Take 2 tablets every day by oral route as needed for 30 days. active Not Available Not Available No t Available clindamyc in HCl 300 mg capsule TAKE 1 CAPSULE BY MOUTH EVERY 12 HOURS UNTIL FINISHED 09/19 completed Not Available Not Available Not Available trazodone 50 mg tablet active Not Available Not Available Not Available azithromy radha 250 mg tablet TAKE 2 TABLETS BY MOUTH TODAY, THEN TAKE 1 TABLET DAILY FOR 4 DAYS 10/29 completed Not taking at this time 10/29/22 JF Not Available Not Available Not Available prednison e 20 mg tablet TAKE 3 TABLETS (60 MG TOTAL) BY MOUTH DAILY WITH BREAKFAS T FOR 6 DAYS. 10/29 completed Not taking at this time 10/29/22 JF Not Available Not Available Not Available sertralin e 100 mg tablet active Not Available Not Available Not Available penicilli n V potassium 500 mg tablet TAKE 1 TABLET BY MOUTH 4 TIMES A DAY FOR 7 DAYS. 10/29 completed Not taking at this time 10/29/22 JF Not Available Not Available Not Available triamcino lone acetonide 0.1 % topical cream APPLY THIN COAT TO AFFECTED AREA TWICE A DAY active Not Available Not Available No t Available Macrobid 100 mg capsule Take 1 capsule every 12 hours by oral route for 3 days. 05/22 completed Not Available Not Available Not Available cefadroxi l 500 mg capsule PLEASE SEE ATTACHED FOR DETAILED DIRECTIO NS 10/29 completed Not taking at this time 10/29/22 JF Not Available Not Available Not Available alprazola m 0.25 mg tablet Take 1 tablet twice a day by oral route as needed. active Not Available Not Available No t Available lorazepam 0.5 mg tablet active Not Available Not Available Not Available lorazepam 2 mg tablet TAKE 1 TAB THE NIGHT BEFORE AND 1 TAB ONE HOUR BEFORE APPT 10/29 completed Not taking at this time 10/29/22 JF Not Available Not Available Not Available doxycycli ne monohydra te 100 mg capsule 10/29 completed Not taking at this time 10/29/22 JF Not Available Not Available Not Available erythromy radha 5 mg/gram (0.5 %) eye ointment active Not Available Not Available Not Available ergocalci ferol (vitamin D2) 1,250 mcg (50,000 unit) capsule active Not Available Not Available Not Available lorazepam 1 mg tablet active Not Available Not Available Not Available cefdinir 300 mg capsule TAKE 1 CAPSULE BY MOUTH 2 TIMES A DAY FOR 5 DAYS. 10/29 completed Not taking at this time 10/29/22 JF Not Available Not Available Not Available sertralin e 50 mg tablet active Not Available Not Available Not Available Amphetami ne Salt Combo 10 mg tablet TAKE 1 TABLET BY MOUTH TWICE A DAY active Not Available Not Available No t Available Mapap Arthritis Pain 650 mg tablet,ex tended release TAKE 1 TABLET BY MOUTH EVERY 6 HOURS NEEDED FOR PAIN 09/19 completed Not Available Not Available Not Available cyclobenz aprine 5 mg tablet Take 1 tablet 3 times a day by oral route as needed. active Not Available Not Available No t Available Vyvanse 30 mg capsule TAKE 1 CAPSULE BY MOUTH ONCE EVERY MORNING active Not Available Not Available No t Available Vitals Date Recorded Body weight Body temperature Heart rate Systolic blood pressure Diastolic blood pressure Provider Name and Address Organization Details Last Updated DateTime 12/19/2018 71856.1 3 g 98.7 [degF] 88 /min 120 mm[Hg] 80 mm[Hg] Carmelita Key [facility] 9 14:30:39 Date Recorded Body weight Body mass index (BMI) Body height Oxygen saturation Oxygen saturation in Arterial blood by Pulse oximetry Heart rate Systolic blood pressure Diastolic blood pressure Provider Name and Address Organization Details Last Updated DateTime 9 38741.6 2 g 27.9 kg/m2 177.8 cm 95 % 95 % 70 /min 110 mm[Hg] 80 mm[Hg] Jamesmarzena Morse [facility] 9 10:02:23 Date Recorded Body weight Heart rate Systolic blood pressure Diastolic blood pressure Provider Name and Address Organization Details Last Updated DateTime 09/19/2020 62908.83 g 86 /min 110 mm[Hg] 80 mm[Hg] Adriane Hubbard LPN [facility] 09/19/2020 08:30:34 Date Recorded Body weight Oxygen saturation Oxygen saturation in Arterial blood by Pulse oximetry Heart rate Body temperature Systolic blood pressure Diastolic blood pressure Provider Name and Address Organization Details Last Updated DateTime 2 909404. 38 g 98 % 98 % 90 /min 99.1 [degF] 110 mm[Hg] 66 mm[Hg] Elvai High [facility] 2 16:16:43 Date Recorded Respiratory rate Heart rate Oxygen saturation Oxygen saturation in Arterial blood by Pulse oximetry Body weight Systolic blood pressure Diastolic blood pressure Provider Name and Address Organization Details Last Updated DateTime 3 12 /min 96 /min 99 % 99 % 115233. 68 g 140 mm[Hg] 82 mm[Hg] Anne Snow [facility] 3 08:50:53 Social History Question Answer Notes LastModified by Organizat ion Details LastModified Time Tobacco Smoking Status Current Every Day Smoker 10 cigs a day for 10 years [facility]2015 15:19:51 Do You Have An Advance Directive? No Information not available 04/14/2012 What Is Your Level Of Alcohol Consumption? None Information not available 04/14/2012 Are You Blind Or Do You Have Difficulty Seeing? No Wears Glasses Information not available 05/19/2013 What Is Your Level Of Caffeine Consumption? Moderate Information not available 04/14/2012 Are You Deaf Or Do You Have Serious Difficulty Hearing? Yes Had [place] [facility] Appt-never Went Information not available 05/19/2013 What Type Of Diet Are You Following? REGULAR Information not available 04/14/2012 Which Illicit Or Recreational Drugs Have You Used? None Information not available 04/14/2012 Do You Or Have You Ever Used E-cigarettes Or Vape? Never Used Electronic Cigarettes Information not available 12/19/2018 What Is Your Occupation? [employer] And [email or web address] Information not available 12/31/2018 Are There Any Guns Present In Your Home? [facility] Information not available 04/14/2012 Live Alone Or With Others? With Others Information not available 04/14/2012 Does The Patient Have Difficulty Speaking Afghan? No Information not available 04/14/2012 Does The Patient Have Difficulty Reading Afghan? No Information not available 04/14/2012 Patient Has Health Care Proxy Signed And In Chart No Information not available 04/14/2012 Marital Status Single Info rmation not available 04/14/2012 Mosquito Repellent Used Routinely Yes [facility] Information not available 04/14/2012 What Was The Date Of Your Most Recent Tobacco Screening? 10/29/2022 [email or web address] Information not available 10/29/2022 How Many Children Do You Have? 0 Information not available 04/14/2012 What Is Your Current Pack Years? 10-19packyear s [facility] Information not available 05/18/2015 Seat Belts Used Routinely Yes [facility] Information not available 04/14/2012 Smoke Alarm In Home Yes [facility] Information not available 04/14/2012 Do You Or Have You Ever Used Smokeless Tobacco? Never Used Smokeless Tobacco Information not available 12/19/2018 How Much Tobacco Do You Smoke? 0.5 PPD Information not available 05/18/2015 General Stress Level Medium Information not available 04/14/2012 Do You Use Any Illicit Or Recreational Drugs? No [email or web address] Information not available 10/29/2022 Do You Use Sunscreen Routinely? No [facility] Information not available 04/14/2012 How Many Years Have You Smoked Tobacco? 10 Information not available 05/18/2015 Do You Or Have You Ever Used Any Other Forms Of Tobacco Or Nicotine? No Information not available 10/29/2022 Sex: Unknown Functional Status Question Answer Note LastModified by Organization D etails LastModified Time Do you have difficulty walking or climbing stairs? [facility] Information not available 05/19/2013 Do you have difficulty doing errands alone? No Information not available 05/19/2013 Do you have difficulty dressing or bathing? No Information not available 05/19/2013 Mental Status Question Answer Note LastModified by Organizat ion Details LastModified Time Do you have difficulty concentrating, remembering or making decisions? Yes Information n ot available 05/19/2013 Family History Relationship Description Onset Age of this Age Resolved Age Notes LastModified by Organization Details LastModified Time Father Malignant tumor of prostate 72 previo usly record ed as Cancer - Prosta te [email or web address] [id number] Not available 09/22/2012 03:01:25 Mother Hypertensive disorder previo usly record ed as Hypert ension [email or web address] [id number] Not available 09/22/2012 03:01:25 Mother Heart disease CHF [email or web address] [id number] Not available 09/22/2012 03:01:25 Mother Diabetes mellitus previo usly record ed as Diabet es [email or web address] [id number] Not available 09/22/2012 03:01:25 Paternal Aunt Malignant neoplastic disease Stomac h (previ ously record ed as Cancer ) [email or web address] [id number] Not available 09/22/2012 03:01:25 Medical History No medical history recorded. Gynecological HistoryNo gynecological history recorded. Obstetrics History GPAL:G 0 P 0 0 0 0 Immunizations Vaccine Type Date Status Note Provider Nam e and Address Organization Details Recorded Time Influenza, split virus, trivalent, preservative 2 completed Not Available [facility] 03/14/2023 20:07:07 tetanus toxoid, adsorbed 6 completed Not Available [facility] 03/14/2023 20:07:07 Tdap 6 completed Not Available [facility] 02/28/2019 02:20:18 Tdap 1 completed Not Available [facility] 03/14/2023 20:07:07 Past Encounters Encounter ID Performer Location Encounter Start Date Encounter Closed Date Diagnosis/Indication Diagnosis SNOMED-CT Code Diagnosis ICD10 Code [id number] Donnie Garcia MD , [facility], [address] [place] [address] 03/14/2012 10:15:44 03/14/2012 11:17:58 [id number] Donnie Garcia MD , [facility], [address] [place] [address] 04/14/2012 15:03:52 04/16/2012 14:27:15 [id number] AGUSTINA Watts, [facility], [address] [place] [address] 03/06/2013 16:55:13 03/06/2013 17:52:32 Palpitations 25669455 Backache [id number] Sharon pedro MA , [facility], [address] [place] [address] 05/19/2013 14:13:56 05/19/2013 15:07:24 Adult health examination 578347041 Counseling 154262463 Hypokalemia 30922594 Attention deficit hyperactivity disorder, predominantly inattentive type 10476553 Retention of urine 74544 4002 Palpitations 28927449 [id number] [facility], [address] [place] [address] 02/15/2014 08:13:29 02/15/2014 08:45:49 Screening for malignant neoplasm of cervix 795292036 Venereal d isease screening 492430594 Palpitations 43341170 [id number] Donnie Garcia MD , [facility], [address] [place] [address] 03/04/2015 15:24:39 03/04/2015 16:17:46 Backache 234774545 M54.9 Ankle pain 974870289 M25 .864 [id number] Donnie Garcia MD , [facility], [address] [place] [address] 05/18/2015 15:03:01 05/18/2015 16:34:16 Muscle weakness 53992642 M62.81 Active or passive immunization 198475211 Z23 Tobacco user 959497645 Z 72.0 Headache 35302775 R51 Adult heal th examination 007593968 Z00.00 Counseling 140236749 Z71 .9 Attention deficit hyperactivity disorder, predominantly inattentive type 95524656 F90.0 [id number] Donnie Garcia MD , [facility], [address] [place] [address] 12/19/2018 13:50:34 12/19/2018 15:01:39 Cigarette smoker 79609183 F17.210 Tobacco user 422847979 Z 72.0 Neuropathy 148892873 G62 .9 [id number] Maddy sinclair PA-C , [facility], [address] [place] [address] 12/31/2018 09:50:56 12/31/2018 11:03:27 Adult health examination 563420468 Z00.00 Counseling 552499707 Z71 .9 Depression screening 171 595566 Z13.89 Cigarette smoker 3299468 7 F17.210 Tobacco user 927340190 Z 72.0 Screening for malignant neoplasm of cervix 705177922 Z12.4 Screening for disorder 549993178 Z13.9 Screening mammography 24 702315 Z12.31 [id number] Donnie Garcia MD , [facility], [address] [place] [address] 09/19/2020 08:11:44 09/19/2020 08:57:41 Anxiety 69130733 F41.9 Vaccine ad verse reaction 743824765 T50.Z95A [id number] Faustina Sheppard PA-C , [facility], [address] [place] [address] 10/31/2021 16:04:13 11/02/2021 11:00:47 Infection of tooth 471019807 K04.7 Facial swelling 80329944 6 R22.0 Numbness of face 0799332 09 R20.0 [id number] Amrit Maravilla MD , [facility], [address] [place] [address] 10/29/2022 08:26:47 10/29/2022 09:37:23 Localized eruption of skin 480794377 R21 Tobacco user 310991018 Z 72.0 Health Concerns Section Related Observation LastModified by Organization Detai ls LastModified Time None Recorded Concern Status LastModified by Organization Details LastModified Time None Recorded Advance Directives Directive N: Payers Encounter Date Sequence Insurance Name Policy Number Policy Tamayo Covered Member ID Tamayo Member ID Guarantor Name 12/19/2018 2 [place] [facility] PRIOR TO 05/12/2022 - [facility] (MEDICAID) Hitesh Gamboa [id number] Hitesh Gamboa 12/31/2018 2 [place] PRIOR [place] 2022 - [facility] (MEDICAID) Hitesh L Shurrocks [id number] Hitesh L Shurrocks 09/19/2020 1 [place] [facility] ([place]) [id number] Hitesh L Shurrocks [id number] Hitesh L Shurrocks 09/19/2020 2 [place] [facility] Hitesh L Shurrocks [id number] Hitesh L Shurrocks 10/31/2021 1 [place] [facility] ([place]) [id number] Hitesh L Shurrocks [id number] Hitesh L Shurrocks 10/31/2021 2 [place] [facility] Hietsh L Shurrocks [id number] Hitesh L Shurrocks 10/29/2022 2 [place] [facility] Hitesh L Shurrocks [id number] Hitesh L Shurrocks 10/29/2022 1 [facility] [id number] Hitesh L Shurrocks [id number] Hitesh L Shurrocks Notes Date Note Type Note Provider Name and Address Organization Details Recorded Time 12/19/2018 text/html Patient here for an ER follow up. Recently went to [facility] ER on 12/16/2018 due to non-provoked, non-exertional substernal sharp chest pain. States symptoms have been occurring intermittently for several months, but finally decided to get checked out. Labs including Troponin and EKG unremarkable. CXR negative from ER. States she had an event where she had word finding problems and weakness 2 years ago. Never sought care. States she rehab'd myself by going back to school (Masters in SW at [employer]). Started taking lion trina muschroom 3 weeks ago to improve her cognitive function. Concerned she might have multiple sclerosis (FHx with maternal aunt). Donnie Garcia MD [address] [place] [address], [phone], [facility] 12/20/2018 09:00:30 12/31/2018 text/html Physical Exam/FemaleReported bypatient.PHAPatient is here for a Wellness Visit. She describes her health status as poor. Patient's health is worse than last year.Risk Assessment and Lifestyle Change Counseling-female 27-39Reported bypatient.Coronary Artery Disease Risk Assesment:Family History of Coronary Artery Disease;Does not participate in regular exercise program; Eats a diet low in fats and high in fiber; No personal history of hypertension; No personal history of diabetes;Uses tobacco; No history of peripheral vascular disease, AAA, or carotid disease; No personal history of coronary artery disease Breast Cancer Risk Assessment:No family history of breast cancer; No history of breast cancer or dcis; Menarche: age greater than 14 Cervical Cancer Risk Assessment:Has had abnormal pap smear;Positive HPV infection; Monogamous; History of colposcopy with negative biopsy. Previously followed by [facility] [employer] Lung Cancer Risk Assessment:Has used cigarettes; 1/2 PPD. Risk for Sexually transmitted disease Assessment:No history of sexually transmitted disease; Declines STI screening. Cognitive/Behavioral Risk Assessment:Personal history of depression Safety Risk Assessment:Uses seat belts; No evidence of abuse/neglect Diet:Counseled about appropriate portion size; Counseled about eating a diet low in trans and saturated fats and high in fiber, fruits and vegetables; Discussed the value of a Mediterranean diet, and eating more fruits and vegetables Exercise counseling:Discussed the importance of daily physical activity; Discussed the importance of weight bearing exercise Safety:Counseled about avoiding excessive and unsafe alcohol intake; Counseled about safer sexual practice; Counseled about use of seat belts Smoking Cessation Counseling:Counseled about smoking cessation; Patient is contemplating stopping smoking but not ready to quit Family Planning:Not having sex.a/vmg-smoking [id number] bypatient.Physiologi devonte Dependence/Health RiskCurrently smoking ; Patient has tried to stop smoking times. Patient presents for a PHA visit. -Seen in past for palpitations , was cleared by Cards several yrs ago.-Seen by Neurologist in past for headaches/tremor. MRI neg 2016, Getting workup for MS, new Neuro consult pending.Is currently taking WhoWanna mushroom for cognitive support; taking for past mo.Endorses Naturopathic medicine.Single, states not sex active in several years Had been followed by Dr. Saul Stevenson (Psychiatry) in [facility] for therapy. Seen Dr. Olivares at [facility] (previous PCP). Patient previously went to [place] [facility] for annual Pap (but her last Pap was done here at [facility] and was negative in 02/2014). Maddy Connelly PA-C [address] [place] [address], [phone], [facility] 01/01/2019 10:57:17 09/19/2020 text/html Presents to the office to discuss letter of exemption for work as they are requiring staff to be vaccinated against COVID-19. States she has history of severe reactions to medications and vaccines. 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 Also doing 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 Admits to feeling anxious about the vaccine mandate. Crying in the office, but consolable. Donnie Garcia MD [address] [place] [address], [phone], [facility] 09/30/2020 21:41:23 10/31/2021 text/html Pt states that s he went to the ER on 10/29/21 for dental pain and was prescribed penicillin. Pt states that she has a lot of medication allergies but there are a lot of discrepancies in her records between the pharmacy, [facility] and [facility]. Pt went to [facility] ER 10/29/21 for right jaw/dental pain for 5 days. Was noted to have poor dentition and localized swelling gingival, but no drainable abscess and was started on PCN. Noted to have Bactrim allergy. Was told in the past that she needs a root canal, but had issues with insurance.Has increased pain, swelling, numbness/tingling and right facial numbness and paralysis sxs started yesterday with inability to smile fully.No fevers/chills.No numbness/tingling.No dysarthria.No imbalance.No h/a or vision changes/diplopia.No rashes. + smoker Faustina Sheppard PA-C [address] [place], [phone], [facility] 01/01/2022 15:02:01 10/29/2022 text/html for followup destinee h, Seen in ER several times, diagnosed with cellulitis. Hs had two rounds abx. Has been 5 weeks.Rash less red, but itchy. Using calamine at this point, helps. Amrit Maravilla, MD [address] [place] [address], [phone], [facility] 10/29/2022 09:13:18 OBGyn Episode No OBEpisode recorded.
[2024-02-07 11:07] VITALS: BP 118/84; PULSE 81; BMI 33.5
--- NOTE | 2024-02-07 11:07 | A.OFFVIS_ITS ---
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 Allergies bacitracin [From Triple Antibiotic] Allergy (Verified 01/06/24 11:26) Rash doxycycline Allergy (Verified 01/06/24 11:26) Hallucinations neomycin [From Triple Antibiotic] Allergy (Verified 01/06/24 11:26) Rash Penicillins Allergy (Verified 01/06/24 11:26) Unknown polymyxin B [From Triple Antibiotic] Allergy (Verified 01/06/24 11:26) Rash adhesive tape Adverse Reaction (Verified 01/06/24 11:26) rash COVID19 Adverse Reaction (Uncoded 01/06/24 11:26) Anaphylaxis Medication List - Last Reconciled 02/07/24 by Jomar Calderon MD amlodipine (Norvasc) 7.5 mg (1.5 x 5 mg) PO DAILY 90 days HPI Comments Details: Marisela comes for follow-up. She says she feels a whole lot better since control of her blood pressure. She does not have any episodes of chest tightness anymore. Denies any lightheadedness, syncope. Still has fluttering in his chest but says the symptoms have improved since blood pressure control. Her coronary CTA shows no evidence of coronary disease with normal coronary arteries. She is concerned about her cardiac arrhythmias. His strong family history of atrial fibrillation. [facility] Medical History Palpitations Not ready to quit smoking Rosacea PTSD (post-traumatic stress disorder) Essential hypertension Surgical History No pertinent past surgical history Family History Father Substance use disorder Mental health disorder Essential hypertension Alcoholism Prostate cancer Paternal Uncle No problems noted. Sister Mental health disorder Cardiac arrhythmia History of pulmonary embolus (PE) PTSD (post-traumatic stress disorder) OCD (obsessive compulsive disorder) Atrial fibrillation Mother Cardiac arrhythmia Diabetes mellitus Congestive heart failure (CHF) Essential hypertension Atrial fibrillation Social History Housing: House Patient Tobacco Use Status: Current everyday Tobacco user Tobacco use type: Cigarette (light cigarettes 2 packs per week) e-Cigarette/Vaping Use: Never Used service: No Current occupational status: employed Cognitive needs: No Hearing needs: No Vision needs: Yes Review of Systems Const Denies weakness ENT Reports dizziness Card Reports chest pain, Denies chest pain with activity, Denies syncope, Denies rapid heart rate, Denies pedal edema, Denies edema, Denies leg edema, Denies lightheadedness, Reports palpitations, Denies dyspnea, Denies dyspnea on exertion, Denies orthopnea and Reports other (Fluttering in her chest) Resp Denies cough, Denies dyspnea and Denies dyspnea on exertion GI Denies hematochezia and Denies change in stool character Musc Denies abnormal gait, Denies muscle cramps, Denies muscle weakness, Denies numbness, Denies radiating pain into limb and Denies tingling Neuro Denies abnormal gait, Reports dizziness, Denies syncope, Denies numbness, Denies tingling and Denies weakness Endo Reports palpitations Physical Exam Vital Signs: Last Vital Signs Pulse 81 02/07/24 11:07 BP 118/84 02/07/24 11:07 BMI result Body Mass Index 33.5 Const General: healthy appearing and no acute distress Orientation/consciousness: patient oriented x3 HEENT Head: Yes normal to inspection Eyes General: appearance normal, both eyes and all related structures Neck Neck: Yes normal visual inspection Chest Chest palpation & inspection: normal inspection of the chest Resp Effort & Inspection: normal respiratory effort Auscultation: clear to auscultation bilaterally Cardio Jugular venous distension: no JVD Palpation: normal PMI Rate: regular rate Rhythm: regular rhythm Heart sounds: S1 normal heart sound present, S2 normal heart sound present, no click, no gallops, no murmurs and no rubs GI Inspection: Yes normal to inspection Palpation (GI): Soft to palpation Skin General skin exam: no rashes or lesions noted Neuro General: patient oriented x3 Extrem General: Yes normal to inspection Psych Appearance: grossly normal Office Procedures EKG Details: EKG shows normal sinus rhythm normal EKG 04201-[id number], Complete Assessment & Plan Assessment & Plan (1) PVCs (premature ventricular contractions): Code(s): I49.3 - Ventricular premature depolarization Category: Medical Plan: Patient was fluttering related to frequent PVCs, isolated but symptoms have significantly improved. She has had longstanding history of these palpitation diagnose about 10 years ago. She is worried about atrial fibrillation given strong family history of atrial fibrillation both in the mother and a sister who is 2 years older. I have discussed with her to obtain a smart phone based EKG device that will help to monitor for any arrhythmias that can be detected. We discussed about risk reduction for development of atrial fibrillation including aggressive control blood pressure as well as weight loss and workup for sleep apnea given her history of hypertension as well as daytime somnolence. Due to insurance issues she wants to hold off on it. (2) Essential hypertension: Code(s): I10 - Essential (primary) hypertension Category: Medical Plan: Hypertension which is currently well optimized on Norvasc therapy. Significantly improved symptoms since a blood pressure is well controlled. [address] st pain is related to subendocardial strain related to hypertension. She was no evidence of coronary artery disease. Continue Norvasc therapy. Continue participate in aggressive lifestyle modification weight loss program. Stress mitigation strategies. Consider sleep apnea evaluation. Will follow up in the clinic in 1 year's time, sooner p.r.n.. Thank you for allowing me to partake in his care Coding Level of Care Code Est Pt Level 4 (01747) Complex EM visit Add On G2211 Diagnoses PVCs (premature ventricular contractions) I49.3 Essential hypertension I10 CPT Codes EKG - CPT: 91819-Pkywfcuvqkwnuxylc, Complete ([id number])
== END 2024-02-07 12:07 | disposition home or self-care (01) ==
PROVIDERS: PCP Internal Medicine; Visit Provider Internal Medicine Cardiovascular Disease
DX: I49.3 Ventricular premature depolarization (principal); I10 Essential (primary) hypertension
CPT/HCPCS: 93010; 99214

== ENCOUNTER → 2024-02-07 10:55 | Outpatient (BNVA) | payer OTHER, SELFPAY | PROVIDERS: PCP Internal Medicine; Visit Provider Internal Medicine Cardiovascular Disease | DX: I49.3 Ventricular premature depolarization (principal); I10 Essential (primary) hypertension | CPT/HCPCS: 93005 ==

== ENCOUNTER 2024-10-26 10:25 | Outpatient (AMB) | payer OTHER, SELFPAY ==
[2024-10-26 10:28] VITALS: BP 116/78; PULSE 94; O2SAT 97; BMI 33.5
--- NOTE | 2024-10-26 10:28 | A.OFFVIS_ITS ---
Vital Signs 10/26/24 10:28 Height 5 ft 11 in Weight 240 lb BMI 33.5 BP 116/78 Blood Pressure Location Lt brachial Position Sitting Pulse 94 Pulse Source Pulse Oximeter Pulse Oximetry (%) 97 Oxygen Delivery Method Room Air Intake Visit Reasons: [facility] screening r/s 06/29/24 Intake Note: New pt for initial colo screening. CC: Pt reports intermittent issues with gas and bloating but does not take anything for it at this moment. Sees Dr. Calderon for severe HTN. 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 female with past medical history of PVC, palpitations, PTSD, hypertension is here today for pre colonoscopy screening.? Patient was sent to us by her PCP.? This is her first colonoscopy screening.? Patient denies any gastrointestinal symptoms in the past or at present.? Denies any personal or family history of gastrointestinal disease, colon polyps, or CRC.? Denies history of difficulty with sedation or anesthesia in the past.? Negative for history of sleep apnea.? Denies any history of cardiac, renal, pulmonary, or hepatic disease.?? No history of infectious? diseases like hepatitis A, B, C, HIV or tuberculosis.? Patient is not on any anticoagulation PFSH Medical History Palpitations Not ready to quit smoking Rosacea PTSD (post-traumatic stress disorder) Essential hypertension Surgical History No pertinent past surgical history Family History Father Substance use disorder Mental health disorder Essential hypertension Alcoholism Prostate cancer Paternal Uncle No problems noted. Sister Mental health disorder Cardiac arrhythmia History of pulmonary embolus (PE) PTSD (post-traumatic stress disorder) OCD (obsessive compulsive disorder) Atrial fibrillation Mother Cardiac arrhythmia Diabetes mellitus Congestive heart failure (CHF) Essential hypertension Atrial fibrillation Social History Housing: House Patient Tobacco Use Status: Current everyday Tobacco user Tobacco use type: Cigarette (light cigarettes 2 packs per week) e-Cigarette/Vaping Use: Never Used service: No Current occupational status: employed Cognitive needs: No Hearing needs: No Vision needs: Yes Review of Systems Const Denies weight gain and Denies weight loss ENT Reports no additional complaints, Denies dysphagia and Denies odynophagia Card Reports no additional complaints Resp Reports no additional complaints GI Denies abdominal pain, Denies belching, Denies melena, Denies bloating, Denies change in bowel habits, Denies dysphagia, Denies excessive flatus, Denies dyspepsia, Denies heartburn, Denies diarrhea, Denies loose stools, Denies nausea, Denies odynophagia and Denies vomiting Musc Reports no additional complaints Neuro Reports no additional complaints Psych Reports no additional complaints Endo Reports no additional complaints Physical Exam Vital Signs: Last Vital Signs Pulse 94 10/26/24 10:28 BP 116/78 10/26/24 10:28 Pulse Ox 97 10/26/24 10:28 Oxygen Delivery Method Room Air 10/26/24 10:28 BMI result Body Mass Index 33.5 Const General: healthy appearing and no acute distress Nutritional Appearance: obese Orientation/consciousness: patient oriented x3 Resp Effort & Inspection: normal respiratory effort, able to speak in complete sentences, no tracheal deviation and symmetric chest movement Auscultation: clear to auscultation bilaterally Cardio Rate: regular rate GI Inspection: Yes normal to inspection, No distended and Yes obesity Palpation (GI): Soft to palpation, not firm, nontender and No hepatosplenomegaly present Auscultation: normal bowel sounds General: Yes no CVA tenderness Back/Spine/Pelvis Back: no CVA tenderness Skin General skin exam: elasticity normal, turgor normal and dry skin Neuro General: patient oriented x3 Psych Appearance: grossly normal Mental Status: mental status grossly normal Assessment & Plan Assessment & Plan (1) Encounter for screening for malignant neoplasm of colon: Code(s): Z12.11 - Encounter for screening for malignant neoplasm of colon Plan Patient denies any GI, cardiac or respiratory symptoms.? Denies any issues with anesthesia in the past.? Denies any history of sleep apnea.? No history infectious diseases in the past or present.? Not on any anticoagulation therapy.? No family or personal history of colon cancer or polyps.? Patient denies melena, hematochezia, unintentional weight loss or ribbon like stools.? Discussed at length the pre-procedure,? prep, diet & medications as well as what to expect prior, during and after the procedure.?? Stressed the importance of good bowel prep.? Recommended the use of Vaseline or Calmoseptine OTC & baby wipes with bowel movements to promote comfort.? ?Patient verbalizes understanding and agrees to plan of care.? She was given the opportunity to ask questions and all questions answered.? We will see her after the procedure.? Medications: New bisacodyl (Dulcolax (bisacodyl)) take 4 tabs at noon the day before your colonoscopy 20 mg (4 x 5 mg) PO ONCE 4 tabs 0RF constipation 1 day Z12.11 - Encounter for screening for malignant neoplasm of colon polyethylene glycol 3350 (Miralax) As directed by [facility]ology department at [facility] 238 grams PO ONCE 238 grams 0RF Z12.11 - Encounter for screening for malignant neoplasm of colon Coding Level of Care Code New Pt Level 3 (15706) Diagnoses Encounter for screening for malignant neoplasm of colon Z12.11 Time Spent (min) 40 Comment 30 minutes spent with patient and additional 10 minutes spent reviewing her records
--- OUTSIDE RECORDS SUMMARY | 2024-10-26 13:19 | XMS_ITS | Clinical Summary ---
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 20 tablet 03/14/2023 Active Active Problems No known active problems Social History Tobacco Use Types Packs/Day Years Used Date Smoking Tobacco: Every Day Smokeless Tobacco: Never Alcohol Use Standard Drinks/Week Comments Never 0 (1 standard drink = 0.6 oz pur e alcohol) Education Answer Date Recorded Are you interested in more education? Not on adeola e 06/08/2022 Are you concerned about learning? Not on file 06/08/2022 No 06/08/2022 No 06/08/2022 Digital Access Answer Date Recorded No 07/06/2022 No 07/06/2022 Reliable internet access at home? Not on file 07/06/2022 Device with a working camera? Not on file Intimate Partner Violence Answer Date R ecorded Are you denied basic needs s uch as food, clothing, or medical care? No 03/14/2023 In the past 12 months have y ou been in a relationship with a person who hurts, threatens, or tries to control you? No 03/14/2023 Are you denied basic needs s uch as food, clothing, or medical care? No 03/14/2023 In the past 12 months have y ou been in a relationship with a person who hurts, threatens, or tries to control you? No 03/14/2023 Comments No Sex and Gender Information Value Date Recorded Sex Assigned at Female 06/01/2018 7:28 AM EDT Legal Sex Female 9:25 PM EDT Gender Identity Female 06/01/2018 7:28 AM EDT Sexual Orientation Choose not to disclose 2018 7:28 AM EDT Last Filed Vital Signs Vital Sign Reading Time Taken Comments Blood Pressure 121/83 03/14/2023 1:28 PM EST Pulse 75 03/14/2023 1:28 PM EST Temperature 36.5 C (97.7 F) 03/14/2023 1:28 PM EST Respiratory Rate 17 03/14/2023 1:28 PM EST Oxygen Saturation 100% 03/14/2023 1:28 PM EST Inhaled Oxygen Concentration - - Weight 108.9 kg (240 lb) 03/14/2023 9:54 AM EST Height 180.3 cm (5' 11 ) 03/14/2023 9:54 AM EST Body Mass Index 33.47 03/14/2023 9:54 AM EST Plan of Treatment Health Maintenance Due Date Last Done Comments DEPRESSION SCREENING 1989 SMOKING Hx and SMOKELESS TOBACCO SCREENING 1990 HEPATITIS C SCREENING 1995 HIV ONE-TIME SCREENING (18-6 5 YEARS) 1995 PNEUMOCOCCAL VACCINES (0-49 years) (1 of 2 - PCV) 1996 MAMMOGRAM 2017 PAP SMEAR 12/31/2021 12/31/2018 COLOGUARD 2022 COLONOSCOPY 2022 COLORECTAL CANCER SCREENING 2022 FIT TEST 2022 FOBT 2022 SIGMOIDOSCOPY 2022 VIRTUAL COLONOSCOPY 2022 LIPID PANEL 01/01/2024 12/31/2018 INFLUENZA VACCINE (#1) 2024 2, 12/13/2011, 12/29/2009 COVID-19 VACCINE (2 - 2024-2 6 season) 2024 09/22/2020 SCREENING FOR DIABETES 10/31/2024 10/31/2021 Adult Td,Tdap Booster 05/17/2025 05/18/2015 , 12/26/2005, 12/17/2005 HEPATITIS A VACCINES Aged Out No long er eligible based on patient's age to complete this topic HIB VACCINES Aged Out No longer eligi ble based on patient's age to complete this topic MENINGOCOCCAL VACCINES (ACWY) Aged Out No longer eligible based on patient's age to complete this topic MENINGOCOCCAL VACCINES (B) Aged Out N o longer eligible based on patient's age to complete this topic Medical Devices Not on file Procedures Procedure Name Priority Date/Time Associated Diagnosis Comments PAP TEST Routine 12/31/2018 12:00 AM EST from Last 3 Months or Most Recently Relevant to Health Maintenance Results * Pap Smear (12/31/2018 12:00 AM EST) 12/31/2018 01/01/2019 8:4 2 AM EST Narrative SEE NARRATIVE - 01/05/2019 2:04 [place] [address] Web Content Specialist: Alice Ambrosio MD SAP INTEGRATION ARCHITECT Cytology Report FINAL DIAGNOSIS A. PAP SMEAR (SUREPATH) CE: SPECIMEN ADEQUACY: Satisfactory for evaluation; transformation zone present. INTERPRETATION: NEGATIVE FOR INTRAEPITHELIAL LESION OR MALIGNANCY. Electronically Signed Out By: MAGUI Worrell(ASCP) The Pap test is a screening test primarily for squamous cancers and precursors and has associated false-negative and false-positive results. New technologies such as liquid-based preparations may decrease but will not eliminate all false-negative results. Regular sampling and follow-up of unexplained clinical signs and symptoms are recommended to minimize false negative results. PROCEDURES/ADDENDA HPV Testing (Requested) Ordered Date: 01/01/2019 A. PAP SMEAR (SUREPATH) CE: Human Papilloma Virus Test Negative for high-risk human papillomavirus types 16, 18, 45 and the Other high risk probe set (Includes 31, 33, 35, 39, 51, 52, 56, 58, 59, 66, 68) by [employer] Onclarity HR-HPV analysis. Clinical correlation is advised. This HPV test was performed at [facility], [address] [place] [address]. This test has been FDA approved for SurePath cervical cytology specimens. The accuracy and precision of this test for all other specimen sources has been verified in the Cytopathology Laboratory of the [facility] and has not been cleared or approved by the U.S. Food and Drug Administration. Clinical correlation is advised. 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: 43) Sex: F Institution[facility] Location: [facility] Date of Collection: 12/31/2018 Date of Reported: 01/02/2019 12:07 Results to: Maddy Connelly Maddy Connelly PA CYTOLOGY ORDERABLE S Edited Result - Final SEE NARRATIVE from Last 3 Months or Most Recently Relevant to Health Maintenance Insurance [facility] [place] [facility]PO [facility] Care Teams 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 It is not the complete legal health record.Formerly [facility]
== END 2024-10-26 11:24 | disposition home or self-care (01) ==
LOC: HO.HGI 10:26
PROVIDERS: PCP Internal Medicine; Visit Provider Nurse Practitioner Family
DX: Z01.818 Encounter for other preprocedural examination (principal); Z12.11 Encounter for screening for malignant neoplasm of colon
CPT/HCPCS: S0285

== ENCOUNTER 2024-12-22 13:36 | Outpatient (AMB) | payer OTHER, SELFPAY ==
[2024-12-22 14:03] VITALS: BP 132/70; BMI 33.1
--- NOTE | 2024-12-22 14:03 | A.OFFVIS_ITS ---
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: No Allergies bacitracin (From Triple Antibiotic) Allergy (Verified 12/22/24 14:16) Rash doxycycline Allergy (Verified 12/22/24 14:16) Hallucinations neomycin (From Triple Antibiotic) Allergy (Verified 12/22/24 14:16) Rash Penicillins Allergy (Verified 12/22/24 14:16) Unknown polymyxin B (From Triple Antibiotic) Allergy (Verified 12/22/24 14:16) Rash adhesive tape Adverse Reaction (Verified 12/22/24 14:16) rash COVID19 Adverse Reaction (Uncoded 12/22/24 14:16) Anaphylaxis Medication List - Last Reconciled 12/22/24 by Sofia Vines LPN amlodipine (Norvasc) 7.5 mg (1.5 x 5 mg) PO DAILY 90 days bisacodyl (Dulcolax (bisacodyl)) 20 mg (4 x 5 mg) PO ONCE 1 day polyethylene glycol 3350 (Miralax) 238 grams PO ONCE Is last menstrual period known: Yes Last menstrual period: 12/08/24 Post menopausal: No Patient : No HPI Comments Details: Patient is a postmenopausal woman 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 Currently not sexually active >10yrs. Has regular menses x 2-3d. Denies any vaginal dryness or irritation. STI testing offered; she accepts. Attempting to eat a healthy diet with calcium and vitamin D and stays active with exercise. Last pap smear; unknown years ago, negative. Hx. HPV in 2005, skin reaction w/Aldara, some frozen. No LEEP. Last mammogram; years ago. Denies any family history of breast, ovarian or colon cancer. [facility] Medical History Palpitations Not ready to quit smoking Rosacea PTSD (post-traumatic stress disorder) Essential hypertension Surgical History No pertinent past surgical history Family History Father Substance use disorder Mental health disorder Essential hypertension Alcoholism Prostate cancer Paternal Uncle No problems noted. Sister Mental health disorder Cardiac arrhythmia History of pulmonary embolus (PE) PTSD (post-traumatic stress disorder) OCD (obsessive compulsive disorder) Atrial fibrillation Mother Cardiac arrhythmia Diabetes mellitus Congestive heart failure (CHF) Essential hypertension Atrial fibrillation Social History Housing: House Patient Tobacco Use Status: Current everyday Tobacco user Tobacco use type: Cigarette (light cigarettes 2 packs per week) e-Cigarette/Vaping Use: Never Used service: No Current occupational status: employed Cognitive needs: No Hearing needs: No Vision needs: Yes Female Reproductive History Menstrual Age of Menarche: 15 Duration of menses: <3 days Date of last menstrual period: 12/08/24 control method: none Total pregnancies: 0 Date of last pap smear: 01/19/15 History of abnormal pap smear: Yes (HPV pos , genital warts) History of STI: Yes History of abnormal mammogram: No Review of Systems Const All systems reviewed & are unremarkable except as noted in HPI and below Reports as per HPI Eyes Reports no additional complaints ENT Reports no additional complaints Card Reports no additional complaints Resp Reports no additional complaints GI Reports as per HPI and Reports no additional complaints Reports as per HPI Musc Reports no additional complaints Skin/Breast Reports as per HPI Neuro Reports no additional complaints Psych Reports no additional complaints Endo Reports no additional complaints Michel/Lymph Reports no additional complaints Aller/Immun Reports no additional complaints Physical Exam Vital Signs: Last Vital Signs BP 132/70 12/22/24 14:03 BMI result Body Mass Index 33.1 Const General: cooperative, healthy appearing, no acute distress, well developed and alert Orientation/consciousness: patient oriented x3 HEENT Head: Yes normal to inspection Eyes General: appearance normal, both eyes and all related structures Neck Neck: Yes normal visual inspection Thyroid: Thyroid normal Chest Chest palpation & inspection: normal inspection of the chest and other (no puckering, dimpling, peau de orange, retraction, discharge, masses) Breast/axilla inspection: normal inspection of the breasts Breast/axilla palpation: normal palpation of the breasts Resp Effort & Inspection: normal respiratory effort GI Inspection: Yes normal to inspection Palpation (GI): Soft to palpation Rectal Exam - Female: deferred Other: External-prominent sebaceous gland left mid labia. General: Yes bladder normal to palpation External Female Exam: normal external appearance and normal appearance of the urethra Speculum Exam - Vagina: normal appearance of the vagina, normal palpation and normal vaginal discharge Speculum Exam - Cervix: normal appearance of the cervix and normal palpation Bimanual exam- vagina & uterus: normal bimanual exam, normal palpation, uterine size normal, bladder normal to palpation, normal palpation and non-tender Bimanual Exam- Adnexa, other: no masses Skin General skin exam: no rashes or lesions noted Rashes: no rashes Neuro General: patient oriented x3 Cognition (Neuro): normal cognition Extrem General: Yes normal to inspection Psych Attitude: cooperative Thought process: Normal thought process present Assessment & Plan Assessment & Plan (1) Encounter for well woman exam with routine gynecological exam: Code(s): Z01.419 - Encounter for gynecological examination (general) (routine) without abnormal findings Category: Medical Plan Discussed: Current recommendations for pap smears per ASCCP guidelines. Reassured normal exam today with findings of noninfected, superficial sebaceous gland. Perimenopausal changes. Menopause verses perimenopause. Menopause is definitive of 1 year of no menses or 12 months in succession. Report any abnormal uterine bleeding in example prolonged episodes, or short intervals less than 24 days. Breast awareness and periodic breast exams. Mammogram yearly. Maintain a healthy lifestyle including a well balanced diet and routine exercise. Use condoms for STI and prevention. Patient verbalizes understanding and agrees to the plan of care. She was given opportunity to ask questions and all questions were answered to the best of my ability. RTO in one year for annual communications coordinator examination. This note is constructed using voice recognition software. While every effort has been made to ensure accuracy, rebeamer errors may have been included. Orders: Orders MM tomosynthesis screening BI Today Z12.31 - Encounter for screening mammogram for malignant neoplasm of breast CT NG by PCR Vag/Cerv Today Z11.3 - Encounter for screening for infections with a predominantly sexual mode of transmission Bacterial Vaginosis Panel Today Z11.3 - Encounter for screening for infections with a predominantly sexual mode of transmission HPV High risk Today Z01.419 - Encounter for gynecological examination (general) (routine) without abnormal findings Pap Smear Today Z01.419 - Encounter for gynecological examination (general) (routine) without abnormal findings Coding Level of Care Code New Pt Prev Care 40-64y(91539) Diagnoses Encounter for well woman exam with routine gynecological exam Z01.419
--- OUTSIDE RECORDS SUMMARY | 2024-12-22 15:16 | XMS_ITS | Clinical Summary ---
Author Organization [facility] Address [address] [place] [id number] Phone Care Team Providers Care Kiosk Sales Representative Name Role Phone Basia Maravilla MD Primary [...] SEE NARRATIVE - 01/05/2019 2:04 [place] [address] Saw Grinder: Alice Ambrosio MD SKIN TANNER Cytology Report FINAL DIAGNOSIS A. PAP SMEAR [...] 52, 56, 58, 59, 66, 68) by [employer] Onclarity HR-HPV analysis. Clinical correlation is advised. This HPV test was performed at [facility], [address] [place] [address]. This test has been FDA approved for SurePath cervical cytology specimens. The accuracy and precision of this test for all other specimen sources has been verified in the Cytopathology Laboratory of the [facility] and has not been cleared or approved by the U.S. Food and Drug Administration. Clinical correlation is advised. 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 Location: [facility] Date of Collection: 12/31/2018 Date of Reported: 01/02/2019 12:07 Results to: Maddy Connelly Maddy Connelly PA CYTOLOGY ORDERABLE S Edited Result - Final SEE NARRATIVE from Last 3 Months or Most Recently Relevant to Health Maintenance [facility] [place] [facility] [place] Care Teams Kiosk Sales Representative Relationship Specialty Start Date End Date Basia Maravilla MD [email or web address] PCP - General Family Medicine 03/14/23 Additional Source Comments The information contained in this document represents components of the legal health record. It is not the complete legal health record.[facility]
== END 2024-12-23 14:42 | disposition home or self-care (01) ==
PROVIDERS: PCP Internal Medicine; Visit Provider Advanced Practice Midwife
DX: Z01.419 Encounter for gynecological examination (general) (routine) without abnormal findings (principal)
CPT/HCPCS: 99386; 99459

== ENCOUNTER 2024-12-22 13:36 | Outpatient (REF) | payer OTHER, SELFPAY ==
[2024-12-23 02:59] LABS: Bacterial Vaginosis PCR NEGATIVE (Negative); Candida Group PCR NOT DETECTED (Not Detect); Candida glab krusei PCR NOT DETECTED (Not Detect); Trichomonas vaginalis PCR NOT DETECTED (Not Detect)
[2024-12-23 03:30] LABS: CT PCR NOT DETECTED (Not Detect.); NG PCR NOT DETECTED (Not Detect.)
== END 2024-12-22 13:37 | disposition home or self-care (01) ==
LOC: HO.LNP 13:36
PROVIDERS: PCP Internal Medicine; Visit Provider Advanced Practice Midwife
DX: Z01.419 Encounter for gynecological examination (general) (routine) without abnormal findings (principal); Z20.2 Contact with and (suspected) exposure to infections with a predominantly sexual mode of transmission; Z12.31 Encounter for screening mammogram for malignant neoplasm of breast; Z11.51 Encounter for screening for human papillomavirus (HPV)
CPT/HCPCS: 81515; 87491; 87591; 87626; 88175

== ENCOUNTER 2025-02-08 09:53 | Outpatient (AMB) | payer OTHER, SELFPAY ==
[2025-02-08 09:57] VITALS: BP 128/80; PULSE 97; BMI 32.6
--- NOTE | 2025-02-08 09:57 | A.OFFVIS_ITS ---
Vital Signs 02/08/25 09:57 Height 5 ft 11 in Weight 233 lb 11.04 oz BMI 32.6 BP 128/80 Blood Pressure Location Lt brachial Position Sitting Pulse 97 Intake Visit Reasons: 1 year follow-up with ekg Intake Note: 1 year follow-up with ekg c/o some heart racing about a month ago Verification Rep Required: No Allergies bacitracin (From Triple Antibiotic) Allergy (Verified 12/22/24 14:16) Rash doxycycline Allergy (Verified 12/22/24 14:16) Hallucinations neomycin (From Triple Antibiotic) Allergy (Verified 12/22/24 14:16) Rash Penicillins Allergy (Verified 12/22/24 14:16) Unknown polymyxin B (From Triple Antibiotic) Allergy (Verified 12/22/24 14:16) Rash adhesive tape Adverse Reaction (Verified 12/22/24 14:16) rash COVID19 Adverse Reaction (Uncoded 12/22/24 14:16) Anaphylaxis Medication List - Last Reconciled 02/08/25 by Jomar Calderon MD amlodipine (Norvasc) 7.5 mg (1.5 x 5 mg) PO DAILY 90 days bisacodyl (Dulcolax (bisacodyl)) 20 mg (4 x 5 mg) PO ONCE 1 day polyethylene glycol 3350 (Miralax) 238 grams PO ONCE HPI Comments Details: Marisela comes for follow-up after 1 year. He said in the last year she has had significant stress related to her mom's held and she has been very stressed out. About a month and half ago she had significant stress due to recurrent hospitalization and felt rapid heart rate. She would not monitor her blood pressure. She has been taking amlodipine and feels that this is done extremely well for her. She is currently taking 7.5 mg of amlodipine with good control of the blood pressure. She has not been monitoring her blood pressure regularly at home. Denies any skipped heartbeats. [facility] Medical History Palpitations Not ready to quit smoking Rosacea PTSD (post-traumatic stress disorder) Essential hypertension Surgical History No pertinent past surgical history Family History Father Substance use disorder Mental health disorder Essential hypertension Alcoholism Prostate cancer Paternal Uncle No problems noted. Sister Mental health disorder Cardiac arrhythmia History of pulmonary embolus (PE) PTSD (post-traumatic stress disorder) OCD (obsessive compulsive disorder) Atrial fibrillation Mother Cardiac arrhythmia Diabetes mellitus Congestive heart failure (CHF) Essential hypertension Atrial fibrillation Social History Housing: House Patient Tobacco Use Status: Current everyday Tobacco user Tobacco use type: Cigarette (light cigarettes 2 packs per week) e-Cigarette/Vaping Use: Never Used service: No Current occupational status: employed Cognitive needs: No Hearing needs: No Vision needs: Yes Female Reproductive History Menstrual Age of Menarche: 15 Review of Systems Const Denies chills, Reports fatigue, Denies fever(s), Denies frequent falls, Denies weakness, Denies weight gain and Denies weight loss ENT Denies dizziness Card Reports chest pain, Denies leg edema, Denies lightheadedness, Reports palpitations, Denies dyspnea, Denies dyspnea on exertion, Denies orthopnea and Denies other (loss of consciousness) Resp Denies cough, Denies dyspnea and Denies dyspnea on exertion GI Denies hematochezia and Denies change in stool character Musc Denies abnormal gait, Denies muscle weakness, Denies numbness, Denies radiating pain into limb and Denies tingling Neuro Denies abnormal gait, Denies dizziness, Denies frequent falls, Denies numbness, Denies tingling and Denies weakness Endo Reports fatigue and Reports palpitations Physical Exam Vital Signs: Last Vital Signs Pulse 97 02/08/25 09:57 BP 128/80 02/08/25 09:57 BMI result Body Mass Index 32.6 Const General: healthy appearing, no acute distress and anxious Orientation/consciousness: patient oriented x3 HEENT Head: Yes normal to inspection Eyes General: appearance normal, both eyes and all related structures Neck Neck: Yes normal visual inspection Chest Chest palpation & inspection: normal inspection of the chest Resp Effort & Inspection: normal respiratory effort Auscultation: clear to auscultation bilaterally Cardio Jugular venous distension: no JVD Palpation: normal PMI Rate: regular rate Rhythm: regular rhythm Heart sounds: S1 normal heart sound present, S2 normal heart sound present, no click, no gallops, no murmurs and no rubs GI Inspection: Yes normal to inspection Palpation (GI): Soft to palpation Skin General skin exam: no rashes or lesions noted Neuro General: patient oriented x3 Extrem General: Yes normal to inspection Psych Appearance: grossly normal Office Procedures EKG Details: EKGs shows normal sinus rhythm with nonspecific STT wave changes [id number], Complete Assessment & Plan Assessment & Plan (1) Palpitations: Code(s): R00.2 - Palpitations Category: Medical Plan: Patient was symptoms of palpitation which was sporadic under lot of increased stress. Could represent sinus tachycardia although cardiac arrhythmias such as SVT can not be entirely ruled out. Suggest to invest in his EKGs device that could potentially help with diagnose. However she says she is very symptomatic in very stressed heart and would like some help with medications. Will start empirically on metoprolol succinate 25 mg daily to reduce cardiac excitability. We discussed about stress mitigation strategies. I think she might benefit from treatment for anxiety with long-acting medication such as sertraline. (2) Essential hypertension: Code(s): I10 - Essential (primary) hypertension Category: Medical Plan: Hypertension which is overall well optimized on current amlodipine therapy. Advised to continue the same. Stress mitigation strategies was discussed. Low- salt diet was discussed. Advised to monitor blood pressure at home and maintain a log. Goal blood pressure less than 130/84. No change in therapy at this point time. She has had good results with amlodipine. Will follow up in the clinic in 2 years sooner PRN. Thank you for allowing me to partake in her care Medications: New metoprolol succinate ER (Toprol XL) 25 mg PO DAILY 30 tabs 3RF Coding Level of Care Code Est Pt Level 4 (05669) Diagnoses Palpitations R00.2 Essential hypertension I10 CPT Codes EKG - CPT: 71705-[id number], Complete ([id number])
--- OUTSIDE RECORDS SUMMARY | 2025-02-08 10:41 | XMS_ITS | Clinical Summary ---
Author Organization [facility] Address [address] [place] [id number] Phone Care Team Providers Care Special Needs Caregiver Name Role Phone Basia Maravilla MD Primary [...] SEE NARRATIVE - 01/05/2019 2:04 [place] [address] Rn Behavioral Health: Alice Ambrosio MD LICENSED PRACTICAL VOCATIONAL NURSE Cytology Report FINAL DIAGNOSIS A. PAP SMEAR [...] 52, 56, 58, 59, 66, 68) by [employer] HR-HPV analysis. Clinical correlation is advised. This HPV test was performed at [facility], [address] [place] [address]. This test has been FDA approved for [facility] cervical cytology specimens. The accuracy and precision of this test for all other specimen sources has been verified in the Cytopathology Laboratory of the [facility] and has not been cleared or approved by the U.S. Food and Drug Administration. Clinical correlation is advised. 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 Location: [facility] Date of Collection: 12/31/2018 Date of Reported: 01/02/2019 12:07 Results to: Maddy Connelly Maddy Connelly PA CYTOLOGY ORDERABLE S Edited Result - Final SEE NARRATIVE from Last 3 Months or Most Recently Relevant to Health Maintenance Insurance [facility] [place] [facility] [place] [facility] [place] [facility] [place] [facility] P[facility] Care Teams Special Needs Caregiver Relationship Specialty Start Date End Date Basia Maravilla MD [email or web address] PCP - General Family Medicine 03/14/23 Additional Source Comments The information contained in this document represents components of the legal health record. It is not the complete legal health record.[facility]
== END 2025-02-08 10:23 | disposition home or self-care (01) ==
LOC: HO.HCS 09:53
PROVIDERS: PCP Internal Medicine; Visit Provider Internal Medicine Cardiovascular Disease
DX: R00.2 Palpitations (principal); I10 Essential (primary) hypertension
CPT/HCPCS: 93010; 99214

== ENCOUNTER → 2025-02-08 09:53 | Outpatient (BNVA) | payer OTHER, SELFPAY | PROVIDERS: PCP Internal Medicine; Visit Provider Internal Medicine Cardiovascular Disease | DX: R00.2 Palpitations (principal); I10 Essential (primary) hypertension; Z79.899 Other long term (current) drug therapy | CPT/HCPCS: 93005 ==